=== PATIENT | female | born 1945 | race Two or more races ===

== ENCOUNTER 2020-08-22 09:43 | Outpatient (REF) | payer MEDICARE, MEDICAID, SELFPAY ==
--- NOTE | ~2020-08-22 | XR_ITS ---
EXAMINATION: XR CHEST CLINICAL INFORMATION: Chest pain COMPARISON: None TECHNIQUE: 2 views of the chest were obtained. FINDINGS: The cardiac and mediastinal contours are normal. The lungs are clear. There is no pleural effusion or pneumothorax. There are degenerative changes of the spine and degenerative changes at both shoulder joints. XR/XR chest 2V IMPRESSION: No evidence for acute disease in the chest.
--- NOTE | 2020-08-22 10:28 | ECG_ITS ---
Test Reason : COPD Blood Pressure : / mmHG Vent. Rate : 056 BPM Atrial Rate : 056 BPM P-R Int : 206 ms QRS Dur : 094 ms QT Int : 456 ms P-R-T Axes : 015 -05 079 degrees QTc Int : 440 ms Sinus bradycardia Septal infarct , age undetermined Abnormal ECG No previous ECGs available Referred By: King De Santiago Electronically Signed By:Abdullahi Payan
[2020-08-22 12:25] LABS: MANUAL DIFF FLAG NO
[2020-08-22 12:48] LABS: Glucose Urine UA NEG (NEG); Leukocyte Esterase Urine NEG (NEG); Nitrite Urine NEG (NEG); Specific Gravity - Urine <= 1.005 (1.005-1.025); Urine Blood NEG (NEG); Urine Ketones NEG (NEG); Urine Protein NEG (NEG-TRACE)
[2020-08-22 12:50] LABS: Basophils Percent Auto 0.5 % (0-2); Eosinophils Absolute Auto 0.2 X10*3/uL (0.0-0.4); Eosinophils Percent Auto 2.9 % (0-4); Hematocrit 33.8 % (37-47); Hemoglobin 11.1 g/dl (12.0-16.0); Imm Gran Abs Auto 0.02 X10*3/uL (0.00-0.03); Imm Gran Pct Auto 0.4 % (0.0-0.4); Lymphocytes Absolute Auto 1.6 X10*3/uL (1.2-4.9); Lymphocytes Percent Auto 28.9 % (20-40); Mean Corpuscular HGB Conc 32.8 g/dl (31.0-35.0); Mean Corpuscular Hemoglobin 29.1 pg (27.0-33.0); Mean Corpuscular Volume 88.5 fL (80-98); Mean Platelet Volume 13.2 fL (9.4-12.3); Monocytes Absolute Auto 0.4 X10*3/uL (0.1-1.2); Monocytes Percent Auto 7.7 % (2-11); Neutrophils Absolute Auto 3.3 X10*3/uL (2.0-8.3); Neutrophils Percent Auto 59.6 % (45-73); Platelet Count 189 X10*3/uL (160-400); Red Blood Count 3.82 X10*6/uL (4.20-5.50); Red Cell Distribution Width 15.9 % (11.0-16.0); White Blood Count 5.5 X10*3/uL (4.8-10.8)
[2020-08-22 12:52] LABS: Appearance Urine CLEAR; Color Urine YELLOW
[2020-08-22 13:16] LABS: B Type Natriuretic Peptide 13 pg/mL (<100); Troponin-I High Sensitivity < 3.5 ng/L (<3.5-17.0)
[2020-08-22 13:24] LABS: Alanine Aminotransferase 16 U/L (0-31); Albumin Level 4.2 g/dL (3.5-5.0); Alkaline Phosphatase 93 U/L (39-117); Anion Gap 16 (12-20); Aspartate Amino Transferase 19 U/L (5-31); Bilirubin Direct 0.2 mg/dL (0.0-0.5); Bilirubin Total 0.5 mg/dL (0.0-1.0); Blood Urea Nitrogen 23 mg/dL (9-16); Calcium 9.4 mg/dL (8.4-10.2); Carbon Dioxide 23 mmol/L (22-29); Chloride 106 mmol/L (96-108); Estimated Glomerular Filt Rate > 60; Glucose Random 99 mg/dL (60-115); Potassium 4.4 mmol/L (3.3-5.1); Sodium 141 mmol/L (135-145); Total Protein 7.3 g/dL (6.5-8.0)
[2020-08-22 13:43] LABS: Erythrocyte Sedimentation Rate 34 MM/HR (0-20)
== END 2020-08-22 09:44 | disposition home or self-care (01) ==
LOC: HO.LAB 09:43
PROVIDERS: PCP Internal Medicine; Visit Provider Hospitalist
DX: J45.40 Moderate persistent asthma, uncomplicated (principal); R06.01 Orthopnea; R07.2 Precordial pain; G47.33 Obstructive sleep apnea (adult) (pediatric); F41.9 Anxiety disorder, unspecified; J44.9 Chronic obstructive pulmonary disease, unspecified; Z79.899 Other long term (current) drug therapy
CPT/HCPCS: 36415; 71046; 80048; 80076; 81003; 82785; 83880; 84484; 85025; 85652; 86003; 93005; 99212

== ENCOUNTER → 2020-09-21 10:36 | Outpatient (BNVA) | payer MEDICARE, MEDICAID, SELFPAY | PROVIDERS: PCP Internal Medicine; Referring Provider Internal Medicine; Visit Provider Internal Medicine | DX: R07.2 Precordial pain (principal); E11.8 Type 2 diabetes mellitus with unspecified complications; I10 Essential (primary) hypertension; E78.5 Hyperlipidemia, unspecified; E66.01 Morbid (severe) obesity due to excess calories; G47.33 Obstructive sleep apnea (adult) (pediatric) | CPT/HCPCS: 99202 ==

== ENCOUNTER → 2020-10-05 09:11 | Outpatient (REF) | payer MEDICARE, MEDICAID, SELFPAY ==
--- NOTE | ~2020-10-05 | NM_ITS ---
Myocardial perfusion study Indication: Chest pain to evaluate for myocardial ischemia Technique: The patient was brought in for a Lexiscan perfusion study on 10/05/2020. Patient performed low-level exercise and was injected 0.4 mg of Lexiscan intravenously. Within a minute of injection, 45 mCi of sestamibi was given intravenously. Images were obtained using the SPECT gamma camera interlaced with the gating device. Images were obtained in supine position. Resting perfusion study was performed on 10/09/2020. Patient was administered 45 mCi of sestamibi intravenously at rest. Images were then obtained in supine position. Images obtained with and without CT attenuation. Total DLP 145 mGy-cm. Images were processed with the software and compared side to side in short axis, horizontal long axis and vertical long axis views. Findings: The stress perfusion study showed nonattenuated images show minimal thinning of the distal lateral wall of the LV myocardium. Attenuation corrected images show mildly reduced uptake in the distal septum and apex of the LV myocardium.. The gated study shows normal LV systolic function with calculated LVEF of 60%. LV cavity is normal in size. The gated study shows normal systolic wall thickening and contraction of segments. Resting study shows nonattenuated images show moderately reduced uptake in the distal lateral wall of the LV myocardium and apex of the LV myocardium. Attenuation corrected images show mildly reduced uptake in septum and moderately reduced uptake in the distal septum of the LV myocardium.. Gating at rest reveals normal systolic wall motion with ejection fraction at 58%. The findings are consistent with no clear reversible defect suggestive of ischemia. NM/NM ratna perf SPECT rest & str Impression: 1. Myocardial perfusion imaging study shows likely normal myocardial perfusion 2. Gated LVEF is 60% 3. Transient ischemic dilatation not present EKG is nondiagnostic for ischemia
--- NOTE | 2020-10-05 09:15 | CA_ITS ---
Acquisition Time: 2020-10-05 09:46:40 Total Exercise Time: 00:02:00 Test Indications: CP, SOB Medications: SEE CHART Protocol: LEXISCAN Max HR: 091 BPM 62% of Pred: 146 BPM Max BP: 130/078 mmHG Max Work Load: 1.0 METS Pharmacological stress test using Lexiscan while sitting. Pt tolerated well , denies any anginal sx. EKG without any arrhythmias, non-diagnostic for ischemia. Nuclear images to follow. Normotensive response to test. Test reviewed with Dr. Carnes. Referred By: Brijesh Arshad Overread By: Simi Coyne NP
== END ==
LOC: HO.CARD 09:11
PROVIDERS: Visit Provider Internal Medicine
DX: R07.2 Precordial pain (principal)
CPT/HCPCS: 78452; 93017; A9500; J0280; J2785

== ENCOUNTER → 2020-11-01 08:24 | Outpatient (REF) | payer MEDICARE, MEDICAID, SELFPAY ==
--- NOTE | 2020-11-01 08:28 | CA_ITS ---
Transthoracic Echocardiogram Patient (Last, First, Middle): Viviana Menjivar, Gender: Female Date of : 1945 Age: 74 Procedure Date: 11/01/2020 Procedure Type: Transthoracic Echocardiogram Location: OP Height: 157.48 cm Weight: 110.68 kg BSA: 2.08 m2 Heart Rate: bpm BP: 130 / 56 mmHg General Sales Manager: [facility] MD: Brijesh Arshad MD Floor Supervisor: Nate Carnes MD Symptoms: R07.2 - Precordial pain Study Quality: Good ECG Rhythm: Sinus Conclusions: - 1. Normal LV systolic function with grade 1 diastolic dysfunction 2. Normal cardiac valvular Doppler 3. Normal RV systolic pressure 4. No pericardial effusion Findings Left Ventricle Normal left ventricular size, thickness, and systolic function. The visually estimated ejection fraction is between 65-70%. Spectral Doppler is indicative of an impaired relaxation filling pattern. E/E prime ratio is <8, consistent with normal filling pressures. Evidence suggests grade I (mild) diastolic dysfunction. Right Ventricle Normal right ventricular cavity size and systolic function. Atria The left atrium is normal in size. Interatrial shunt cannot be excluded. The right atrium is normal in size. Aortic Valve The aortic valve structure and function is likely normal. There is no aortic valve stenosis. There is no aortic valve regurgitation. Mitral Valve Normal mitral valve structure and function. There is trace mitral valve regurgitation. There is no mitral valve stenosis. Pulmonic Valve The pulmonic valve was not well visualized. Tricuspid Valve Likely normal tricuspid valve structure and function. There is trace tricuspid valve regurgitation. The right ventricular systolic pressure is normal. The right ventricular systolic pressure is 32 mmHg. Normal right atrial pressure. There is no evidence of pulmonary hypertension. Great Vessels All visible segments of the aorta are normal in size. The pulmonary artery was not well visualized. Venous The inferior vena cava is normal in size and collapses greater than 50% with inspiration. Pericardium/Pleural There is no evidence of pericardial effusion. Prior Study Comparison No prior study available for comparison. Measurements 2D Linear Measurements RVIDd: 2.60 RVIDd Index: 1.25 IVSd: 0.95 0.6-0.9/0.6-1.0 cm LVIDd: 5.00 3.9-5.3/4.2-5.9 cm LVIDd Index: 2.40 2.4-3.2/2.2-3.1 cm/m2 LVIDs: 3.24 2.0-3.6 cm LVPWd: 1.18 0.7-1.1 cm Ao Root: 3.00 2.1-3.5 cm LA Diam: 3.70 2.7-3.8/3.0-4.0 cm LAIDs Index: 1.78 1.5-2.3 cm/m2 LV Mass: 246.81 67-162/88-224 g LV Mass Index: 118.66 43-95/49-115 g/m2 LVOT Diam: 2.20 3.0+(-)1.3 cm 2D Systolic Function EF 4C: 70.00 >55% EF 2C: 66.20 >55% EF BiP: 68.00 >55% Mitral Valve MV Pk E: 0.94 MV PK A: 1.08 MV Decel Time: 257.00 E/A: 0.90 E'Lateral: 5.77 E'Medial: 4.90 E/E' Med: 19.20 E/E' Lat: 16.30 Aortic Valve AoV Pk Donald: 1.49 AoV Mn Donald: 1.18 AoV VTI: 0.43 AoV Pk Grad: 9.00 Aov Mn Grad: 6.00 JOSIE Cont.VTI: 2.44 LVOT LVOT Pk Donald: 0.96 LVOT Mn Donald: 0.73 LVOT VTI: 0.27 LVOT Pk Grad: 4.00 LVOT Mn Grad: 2.00 LVOT Diam: 2.20 LVOT Area: 3.80 Diastolic Function MV Pk E: 0.94 MV Pk A: 1.08 E/A: 0.90 E'Medial: 4.90 E/E' Med: 19.20 E' Laterial: 5.77 E/E' Lat: 16.30 Right Ventricle TAPSE (mm): 26.00 TVS' Donald: 12.00 Tricuspid Valve TR Pk Donald: 2.70 TR Pk Grad: 29.00 RA Press: 3.00 RVSP: 32.00 Great Vessels Aorta Ao Root-2D: 3.00 2.0-3.7 cm Ao Asc: 2.80 2.1-3.4 cm Ao Arch: 2.70 Updated in Other Vendor System with Status of Final Nate Carnes MD electronically signed on 11/01/2020 5:03:28 PM with status of Final
== END ==
LOC: HO.CARD 08:24
PROVIDERS: Visit Provider Internal Medicine
DX: R07.2 Precordial pain (principal)
CPT/HCPCS: 93306

== ENCOUNTER → 2020-11-15 09:46 | Outpatient (BNVA) | payer MEDICARE, MEDICAID, SELFPAY | PROVIDERS: PCP Internal Medicine; Visit Provider Internal Medicine | DX: R07.2 Precordial pain (principal); I10 Essential (primary) hypertension; E78.5 Hyperlipidemia, unspecified; E11.8 Type 2 diabetes mellitus with unspecified complications; E66.01 Morbid (severe) obesity due to excess calories; G47.33 Obstructive sleep apnea (adult) (pediatric) | CPT/HCPCS: 99212 ==

== ENCOUNTER → 2021-08-06 14:41 | Outpatient (BNVA) | payer OTHER, SELFPAY | PROVIDERS: PCP Internal Medicine; Visit Provider Hospitalist | DX: J45.41 Moderate persistent asthma with (acute) exacerbation (principal); G47.33 Obstructive sleep apnea (adult) (pediatric); R06.01 Orthopnea | CPT/HCPCS: 99212 ==

== ENCOUNTER → 2022-02-07 11:07 | Outpatient (BNVA) | payer OTHER, SELFPAY | PROVIDERS: PCP Internal Medicine; Visit Provider Hospitalist | DX: Z23 Encounter for immunization (principal); J45.40 Moderate persistent asthma, uncomplicated; R06.01 Orthopnea; G47.33 Obstructive sleep apnea (adult) (pediatric) | CPT/HCPCS: 90471; 90686; 99212 ==

== ENCOUNTER → 2022-08-05 09:56 | Outpatient (BNVA) | payer OTHER, SELFPAY | PROVIDERS: PCP Internal Medicine; Visit Provider Hospitalist | DX: J45.40 Moderate persistent asthma, uncomplicated (principal); R06.01 Orthopnea; G47.33 Obstructive sleep apnea (adult) (pediatric); Z22.7 Latent tuberculosis | CPT/HCPCS: 99212 ==

== ENCOUNTER 2023-03-03 14:33 | Outpatient (AMB) | payer OTHER, SELFPAY ==
[2023-03-03 14:38] VITALS: PULSE 81; O2SAT 97; BMI 45.0
--- NOTE | 2023-03-03 14:38 | A.OFFVIS_ITS ---
Intake Vital Signs 03/03/23 14:38 Height 5 ft 3 in Weight 254 lb BMI 45.0 Pulse 81 Pulse Source Pulse Oximeter Pulse Oximetry (%) 97 Oxygen Delivery Method Room Air Intake Visit Reasons: Cough Compliance Examiner Required: No Allergies Opiates Allergy (Severe, Uncoded 03/03/23 14:39) Rash/Hives HPI HPI Comments History of Present Illness Details The patient is a 77-year-old woman with known asthma in addition to obstructive sleep apnea. Her asthma has actually been very stable. She has continued to use her inhalers but has not really had to use her rescue inhaler. She continues to use her allergy medicine. In regards to her VANESSA, she does use her BiPAP every night. The BiPAP therapy has been affecting beneficial. She does use a BiPAP for more than 4 hours. At this point the patient does have a comfortable mask which is a fullface mask and she gets supplies from her [employer] company, [email or web address]. Overall she has not had any problems. She did recently start Medicare so therefore a new prescription needs to be sent and I'll make sure they do get that. The plan is for her to continue the BiPAP at this time. We did download her PAP. Her pressures are 14/11. She averages 9 hours a night. Her AHI is normal at 2.1 for the last 30 days. No changes are required at this time. 08/05/2022 the patient is here for a pulm onary follow-up visit. The patient is doing well from a BiPAP standpoint. Her BiPAP therapy has been affecting beneficial. She does use it for more than 4 hours a night. She is tolerating her mask well. Her AHI is down to 1.5. Her asthma seems to be little bit more active now. She has been using the Symbicort and also the Combivent. Typically the allergy season so usually around this time makes it hard for her to breathe. She tries to stay indoors to minimize the exposure. But, at this point she is doing well on the current therapy in does not need any additional therapies. In addition to this she was referred to a day program for the elderly. As far that program she did undergo a tuberculosis screening test. Indeed that was posi tive. She does state that she does have a history of exposure to tuberculosis and she has always tested positive when she is tested with PPD. She has never been diagnosed with active tuberculosis. Explained to her that she has latent tuberculosis. There is a 5-10% chance of reactivation through her on her life. The patient was referred to the TB Clinic to start prophylactic therapy. She is concerned. I did reassure her. At this point the patient follow-up in the fall if any issues arise she is to call the office earlier assessment. 03/03/2023 the patient is here for a pul monary follow-up visit. The patient is doing very well. She continues use the BiPAP every night. The BiPAP therapy has been affecting beneficial. Will go ahead and request additional supplies for her. She does use it for more than 4 hours a night. In addition to that her respiratory status is been well controlled on the current regimen. She continues use inhalers as prescribed. She also has been on her tuberculosis prophylactic treatment for total of 4 months. She has already completed 3 and she is tolerating it well. The patient also has been working on weight loss. Overall she is reassured. She is having an easier time with ambulation. [facility] Medical History (Updated 08/05/22 @ 22:43 by King De Santiago MD) Latent tuberculosis Limb swelling Abnormal EKG VANESSA treated with BiPAP Asthma Dyspnea Chest pain Surgical History History of lumbar surgery History of uterine cancer Family History Father No problems noted. Mother No problems noted. Social History Patient Tobacco Use Status: Never used Tobacco Review of Systems Const Denies fever(s), Denies night sweats and Reports weight loss Eyes Denies change in vision ENT Reports change in voice, Denies hoarseness and Denies sore throat Card Denies chest pain Resp Denies chest congestion, Reports cough, Denies hemoptysis and Denies wheezing GI Reports no additional complaints Musc Reports abnormal gait, Reports back pain, Reports myalgias and Reports limited range of motion Skin/Breast Denies rash Neuro Reports abnormal gait Endo Reports no additional complaints Jimi/Lymph Denies easy bleeding and Denies easy bruising Aller/Immun Denies wheezing Physical Exam Vital Signs: Last Vital Signs Pulse 81 03/03/23 14:38 Pulse Ox 97 03/03/23 14:38 Oxygen Delivery Method Room Air 03/03/23 14:38 BMI result Body Mass Index 45.0 Const General: alert Neck Neck: Yes normal visual inspection, Yes full ROM and Yes no lymphadenopathy Chest Chest palpation & inspection: normal inspection of the chest Resp Effort & Inspection: normal respiratory effort Auscultation: no rhonchi, no wheezes and diminished lung sounds Cardio Rate: regular rate Rhythm: regular rhythm Heart sounds: S1 normal heart sound present and S2 normal heart sound present GI Palpation (GI): Soft to palpation and nontender Auscultation: normal bowel sounds Skin General skin exam: rashes and/or lesions noted Extrem General: Yes edema Assessment & Plan Assessment & Plan (1) Asthma: Code(s): J45.909 - Unspecified asthma, uncomplicated Qualifiers: Asthma complication type: uncomplicated Asthma persistence: persistent Asthma severity: moderate Qualified Code(s): J45.40 - Moderate persistent asthma, uncomplicated (2) Dyspnea: Code(s): R06.00 - Dyspnea, unspecified Qualifiers: Dyspnea type: orthopnea Qualified Code(s): R06.01 - Orthopnea (3) VANESSA treated with BiPAP: Code(s): G47.33 - Obstructive sleep apnea (adult) (pediatric) (4) Latent tuberculosis: Code(s): Z22.7 - Latent tuberculosis Plan continue BIPAP 07/03 Continue combivent continue Symbicort 2puff BID Continue Singulair continue Claritin continue Fluticasone TB clinic and prophylactic TB therapy x 4 months F/U 6 months Coding Level of Care Code Est Pt Level 4 (43720) Diagnoses Moderate persistent asthma without complication J45.40 Asthma complication type: uncomplicated Asthma persistence: persistent Asthma severity: moderate Orthopnea R06.01 Dyspnea type: orthopnea VANESSA treated with BiPAP G47.33 Latent tuberculosis Z22.7 Time Spent (min) 17
== END 2023-03-03 14:56 | disposition home or self-care (01) ==
PROVIDERS: PCP Internal Medicine; Visit Provider Hospitalist
DX: J45.40 Moderate persistent asthma, uncomplicated (principal); R06.01 Orthopnea; G47.33 Obstructive sleep apnea (adult) (pediatric); Z22.7 Latent tuberculosis
CPT/HCPCS: 99214

== ENCOUNTER → 2023-03-03 14:33 | Outpatient (BNVA) | payer OTHER, SELFPAY | PROVIDERS: PCP Internal Medicine; Visit Provider Hospitalist | DX: J45.40 Moderate persistent asthma, uncomplicated (principal); G47.33 Obstructive sleep apnea (adult) (pediatric); R06.01 Orthopnea; Z22.7 Latent tuberculosis | CPT/HCPCS: 99212 ==

== ENCOUNTER 2023-07-15 09:53 | Outpatient (AMB) | payer OTHER, SELFPAY ==
[2023-07-15 09:59] VITALS: PULSE 67; O2SAT 97; BMI 46.5
--- NOTE | 2023-07-15 09:59 | A.OFFVIS_ITS ---
Vital Signs 07/15/23 09:59 Height 5 ft 2 in Weight 254 lb BMI 46.5 Pulse 67 Pulse Source Pulse Oximeter Pulse Oximetry (%) 97 Oxygen Delivery Method Room Air Intake Visit Reasons: cough Teacher Adventure Education Required: No Allergies Opiates Allergy (Severe, Uncoded 07/15/23 10:00) Rash/Hives HPI Comments Details: The patient is a 77-year-old woman with known asthma in addition to obstructive sleep apnea. Her asthma has actually been very stable. She has continued to use her inhalers but has not really had to use her rescue inhaler. She continues to use her allergy medicine. In regards to her VANESSA, she does use her BiPAP every night. The BiPAP therapy has been affecting beneficial. She does use a BiPAP for more than 4 hours. At this point the patient does have a comfortable mask which is a fullface mask and she gets supplies from her [employer] company, [employer]. Overall she has not had any problems. She did recently start Medicare so therefore a new prescription needs to be sent and I'll make sure they do get that. The plan is for her to continue the BiPAP at this time. We did download her PAP. Her pressures are 14/11. She averages 9 hours a night. Her AHI is normal at 2.1 for the last 30 days. No changes are required at this time. 08/05/2022 the patient is here for a pulmonary follow-up visit. The patient is doing well from a BiPAP standpoint. Her BiPAP therapy has been affecting beneficial. She does use it for more than 4 hours a night. She is tolerating her mask well. Her AHI is down to 1.5. Her asthma seems to be little bit more active now. She has been using the Symbicort and also the Combivent. Typically the allergy season so usually around this time makes it hard for her to breathe. She tries to stay indoors to minimize the exposure. But, at this point she is doing well on the current therapy in does not need any additional therapies. In addition to this she was referred to a day program for the elderly. As far that program she did undergo a tuberculosis screening test. Indeed that was positive. She does state that she does have a history of exposure to tuberculosis and she has always tested positive when she is tested with PPD. She has never been diagnosed with active tuberculosis. Explained to her that she has latent tuberculosis. There is a 5-10% chance of reactivation through her on her life. The patient was referred to the TB Clinic to start prophylactic therapy. She is concerned. I did reassure her. At this point the patient follow-up in the fall if any issues arise she is to call the office earlier assessment. 03/03/2023 the patient is here for a pulmonary follow-up visit. The patient is doing very well. She continues use the BiPAP every night. The BiPAP therapy has been affecting beneficial. Will go ahead and request additional supplies for her. She does use it for more than 4 hours a night. In addition to that her respiratory status is been well controlled on the current regimen. She continues use inhalers as prescribed. She also has been on her tuberculosis prophylactic treatment for total of 4 months. She has already completed 3 and she is tolerating it well. The patient also has been working on weight loss. Overall she is reassured. She is having an easier time with ambulation. 07/15/2023 the patient is here for pulmonary follow-up visit. Overall she is doing well. The BiPAP therapy has been affecting beneficial. She has missing a piece from the machine will try to help her with it. The patient does use the machine every night for more than 4 hours. Her adherence is 100%. Her AHI is down to 1. She does get with her mask. No significant leakage. She is complaining of worsening cough. She goes to coughing burst. She does use the rescue inhaler with good improvement of the cough. She does use Symbicort in the morning and also in the evening. Will go ahead and add Spiriva to her regimen. Also some cough drops such as benzonates is will be helpful as well. We did look at her last chest x-ray was from [facility] back in August 2022 demonstrating no acute disease. She was treated prophylactically for latent tuberculosis. She already completed the treatment. She tolerated it fairly well. The patient will try the Spiriva and also the benzo needs. If her symptoms are not better she will call the office. Otherwise will follow-up in 6 months. [facility] Medical History (Updated 08/05/22 @ 22:43 by King De Santiago MD) Latent tuberculosis Limb swelling Abnormal EKG VANESSA treated with BiPAP Asthma Dyspnea Chest pain Surgical History History of lumbar surgery History of uterine cancer Family History Father No problems noted. Mother No problems noted. Social History Patient Tobacco Use Status: Never used Tobacco Review of Systems Const Denies fever(s), Denies night sweats and Reports weight loss Eyes Denies change in vision ENT Reports change in voice, Denies hoarseness and Denies sore throat Card Denies chest pain Resp Denies chest congestion, Reports cough, Denies hemoptysis and Denies wheezing GI Reports no additional complaints Musc Reports abnormal gait, Reports back pain, Reports myalgias and Reports limited range of motion Skin/Breast Denies rash Neuro Reports abnormal gait Endo Reports no additional complaints Jimi/Lymph Denies easy bleeding and Denies easy bruising Aller/Immun Denies wheezing Physical Exam Vital Signs: Last Vital Signs Pulse 67 07/15/23 09:59 Pulse Ox 97 07/15/23 09:59 Oxygen Delivery Method Room Air 07/15/23 09:59 BMI result Body Mass Index 46.5 Const General: alert Neck Neck: Yes normal visual inspection, Yes full ROM and Yes no lymphadenopathy Chest Chest palpation & inspection: normal inspection of the chest Resp Effort & Inspection: normal respiratory effort and prolonged expiratory phase Auscultation: no rhonchi, no wheezes and diminished lung sounds Cardio Rate: regular rate Rhythm: regular rhythm Heart sounds: S1 normal heart sound present and S2 normal heart sound present GI Palpation (GI): Soft to palpation and nontender Auscultation: normal bowel sounds Skin General skin exam: rashes and/or lesions noted Extrem General: Yes edema Assessment & Plan Assessment & Plan (1) Asthma: Code(s): J45.909 - Unspecified asthma, uncomplicated Category: Medical Qualifiers: Asthma complication type: uncomplicated Asthma persistence: persistent Asthma severity: moderate Qualified Code(s): J45.40 - Moderate persistent asthma, uncomplicated (2) Dyspnea: Code(s): R06.00 - Dyspnea, unspecified Category: Medical Qualifiers: Dyspnea type: orthopnea Qualified Code(s): R06.01 - Orthopnea (3) VANESSA treated with BiPAP: Code(s): G47.33 - Obstructive sleep apnea (adult) (pediatric) Category: Medical Plan continue BIPAP 15/12 start Spiriva respimet daily start benzonates as needed for cough continue Symbicort 2puff BID Continue Singulair continue Claritin continue Fluticasone F/U 6 months Medications: New tiotropium bromide 2.5 mcg/actuation (Spiriva Respimat) 2 puffs inhalation DAILY 1 ea 11RF 30 days benzonatate 200 mg PO BID PRN 60 caps 0RF cough 30 days Coding Level of Care Code Est Pt Level 4 (36921) Diagnoses Moderate persistent asthma without complication J45.40 Asthma complication type: uncomplicated Asthma persistence: persistent Asthma severity: moderate Orthopnea R06.01 Dyspnea type: orthopnea VANESSA treated with BiPAP G47.33 Time Spent (min) 16
== END 2023-07-15 10:20 | disposition home or self-care (01) ==
PROVIDERS: PCP Internal Medicine; Visit Provider Hospitalist
DX: J45.40 Moderate persistent asthma, uncomplicated (principal); R06.01 Orthopnea; G47.33 Obstructive sleep apnea (adult) (pediatric)
CPT/HCPCS: 99214

== ENCOUNTER → 2023-07-15 09:53 | Outpatient (BNVA) | payer OTHER, SELFPAY | PROVIDERS: PCP Internal Medicine; Visit Provider Hospitalist | DX: J45.40 Moderate persistent asthma, uncomplicated (principal); R06.01 Orthopnea; G47.33 Obstructive sleep apnea (adult) (pediatric); Z99.89 Dependence on other enabling machines and devices | CPT/HCPCS: 99212 ==

== ENCOUNTER 2024-04-13 10:14 | Outpatient (AMB) | payer OTHER, SELFPAY ==
[2024-04-13 10:24] VITALS: BP 130/78; PULSE 66; O2SAT 100; BMI 46.0
--- NOTE | 2024-04-13 10:24 | A.OFFVIS_ITS ---
Vital Signs 04/13/24 10:24 Height 5 ft 2 in Weight 251 lb 5.231 oz BMI 46.0 BP 130/78 Blood Pressure Location Rt brachial Position Sitting Pulse 66 Pulse Source Pulse Oximeter Pulse Oximetry (%) 100 Oxygen Delivery Method Room Air Intake Visit Reasons: cough Allergies Opiates Allergy (Severe, Uncoded 04/13/24 10:29) Rash/Hives HPI Comments Details: The patient is a 78-year-old woman with known asthma in addition to obstructive sleep apnea. Her asthma has actually been very stable. She has continued to use her inhalers but has not really had to use her rescue inhaler. She continues to use her allergy medicine. In regards to her VANESSA, she does use her BiPAP every night. The BiPAP therapy has been affecting beneficial. She does use a BiPAP for more than 4 hours. At this point the patient does have a comfortable mask which is a fullface mask and she gets supplies from her [employer] company, [employer]. Overall she has not had any problems. She did recently start Medicare so therefore a new prescription needs to be sent and I'll make sure they do get that. The plan is for her to continue the BiPAP at this time. We did download her PAP. Her pressures are 14/11. She averages 9 hours a night. Her AHI is normal at 2.1 for the last 30 days. No changes are required at this time. 08/05/2022 the patient is here for a pulmonary follow-up visit. The patient is doing well from a BiPAP standpoint. Her BiPAP therapy has been affecting beneficial. She does use it for more than 4 hours a night. She is tolerating her mask well. Her AHI is down to 1.5. Her asthma seems to be little bit more active now. She has been using the Symbicort and also the Combivent. Typically the allergy season so usually around this time makes it hard for her to breathe. She tries to stay indoors to minimize the exposure. But, at this point she is doing well on the current therapy in does not need any additional therapies. In addition to this she was referred to a day program for the elderly. As far that program she did undergo a tuberculosis screening test. Indeed that was positive. She does state that she does have a history of exposure to tuberculosis and she has always tested positive when she is tested with PPD. She has never been diagnosed with active tuberculosis. Explained to her that she has latent tuberculosis. There is a 5-10% chance of reactivation through her on her life. The patient was referred to the [facility] to start prophylactic therapy. She is concerned. I did reassure her. At this point the patient follow-up in the fall if any issues arise she is to call the office earlier assessment. 03/03/2023 the patient is here for a pulmonary follow-up visit. The patient is doing very well. She continues use the BiPAP every night. The BiPAP therapy has been affecting beneficial. Will go ahead and request additional supplies for her. She does use it for more than 4 hours a night. In addition to that her respiratory status is been well controlled on the current regimen. She continues use inhalers as prescribed. She also has been on her tuberculosis prophylactic treatment for total of 4 months. She has already completed 3 and she is tolerating it well. The patient also has been working on weight loss. Overall she is reassured. She is having an easier time with ambulation. 07/15/2023 the patient is here for pulmonary follow-up visit. Overall she is doing well. The BiPAP therapy has been affecting beneficial. She has missing a piece from the machine will try to help her with it. The patient does use the machine every night for more than 4 hours. Her adherence is 100%. Her AHI is down to 1. She does get with her mask. No significant leakage. She is complaining of worsening cough. She goes to coughing burst. She does use the rescue inhaler with good improvement of the cough. She does use Symbicort in the morning and also in the evening. Will go ahead and add Spiriva to her regimen. Also some cough drops such as benzonates is will be helpful as well. We did look at her last chest x-ray was from [facility] back in August 2022 demonstrating no acute disease. She was treated prophylactically for latent tuberculosis. She already completed the treatment. She tolerated it fairly well. The patient will try the Spiriva and also the benzo needs. If her symptoms are not better she will call the office. Otherwise will follow-up in 6 months. 04/13/2024 the patient is here for pulmonary follow-up visit. Overall she is doing well from a respiratory status. Asthma seems to be in good control. She recently moved to a different location seems to be a little healthier for her. She is also using her BiPAP at nighttime BiPAP has been affecting beneficial. Sometimes she leaks out he does have a mask fitting. She does use a fullface mask. I did provide her a trial of a F 40 medium mask that seemed to fit well. Hopefully with this mask she can put a little tighter without irritating her nasal bridge. She can try and see which 1 works best for her. Will keep the BiPAP with the current settings / since her AHI still 1.8 even with the mask leakage. Most likely when she gets a better fitting mask the AHI while improves further. No changes right now with respiratory medications. Will follow-up in 6 months. If she has any issues prior to that she will call for an earlier assessment. [facility] Medical History (Updated 08/05/22 @ 22:43 by King De Santiago MD) Latent tuberculosis Limb swelling Abnormal EKG VANESSA treated with BiPAP Asthma Dyspnea Chest pain Surgical History History of lumbar surgery History of uterine cancer Family History Father No problems noted. Mother No problems noted. Social History Patient Tobacco Use Status: Never used Tobacco Review of Systems Const Denies fever(s), Denies night sweats and Reports weight loss Eyes Denies change in vision ENT Reports change in voice, Denies hoarseness and Denies sore throat Card Denies chest pain Resp Denies chest congestion, Reports cough, Denies hemoptysis and Denies wheezing GI Reports no additional complaints Musc Reports abnormal gait, Reports back pain, Reports myalgias and Reports limited range of motion Skin/Breast Denies rash Neuro Reports abnormal gait Endo Reports no additional complaints Jimi/Lymph Denies easy bleeding and Denies easy bruising Aller/Immun Denies wheezing Physical Exam Vital Signs: Last Vital Signs Pulse 66 04/13/24 10:24 BP 130/78 04/13/24 10:24 Pulse Ox 100 04/13/24 10:24 Oxygen Delivery Method Room Air 04/13/24 10:24 BMI result Body Mass Index 46.0 Const General: alert Neck Neck: Yes normal visual inspection, Yes full ROM and Yes no lymphadenopathy Chest Chest palpation & inspection: normal inspection of the chest Resp Effort & Inspection: normal respiratory effort Auscultation: no rhonchi, no wheezes and diminished lung sounds Cardio Rate: regular rate Rhythm: regular rhythm Heart sounds: S1 normal heart sound present and S2 normal heart sound present GI Palpation (GI): Soft to palpation and nontender Auscultation: normal bowel sounds Skin General skin exam: rashes and/or lesions noted Extrem General: Yes edema Assessment & Plan Assessment & Plan (1) Asthma: Code(s): J45.909 - Unspecified asthma, uncomplicated Category: Medical Qualifiers: Asthma complication type: uncomplicated Asthma persistence: persistent Asthma severity: moderate Qualified Code(s): J45.40 - Moderate persistent asthma, uncomplicated (2) Dyspnea: Code(s): R06.00 - Dyspnea, unspecified Category: Medical Qualifiers: Dyspnea type: orthopnea Qualified Code(s): R06.01 - Orthopnea (3) VANESSA treated with BiPAP: Code(s): G47.33 - Obstructive sleep apnea (adult) (pediatric) Category: Medical Plan continue BIPAP 15, trial F40 mask Spiriva respimet daily benzonates as needed for cough continue Symbicort 2puff BID Continue Singulair continue Claritin continue Fluticasone F/U 6 months Coding Level of Care Code Est Pt Level 4 (44001) Diagnoses Moderate persistent asthma without complication J45.40 Asthma complication type: uncomplicated Asthma persistence: persistent Asthma severity: moderate Orthopnea R06.01 Dyspnea type: orthopnea VANESSA treated with BiPAP G47.33 Time Spent (min) 17
--- OUTSIDE RECORDS SUMMARY | 2024-04-13 11:28 | XMS_ITS | Encounter Summary ---
Author Organization [email or web address] Address [address] [place] [address] Care Team Providers Care Search Engine Marketing Manager Name Role Phone Luis F Rodriguez MD Primary Care Provider [phone] Encounter Details Date Type Department Care Team (Late st Contact Info) Description 04/06/2024 9:48 AM EST Anesthesia Event [facility] Endoscopy [address] [place] [id number] Felipe Portillo MD [address] [place] [address] [address] [place] [address] Anesthesia Record Procedure Summary Procedure Name Responsible Anesthesiologist Anesthesia Start Time Anesthesia Stop Time COLONOSCOPY Felipe Portillo MD 04/06/24 0948 5 1043 Events Date Time Event Comment 04/06/2024 0940 0948 An Start 1005 An Start Data The patient wa s reevaluated immediately before moderate or deep sedation use and before anesthesia induction. 1007 In Room 1007 Anesthesia Ready 1040 an stop data 1040 Out of Room 1043 Handoff to RN I completed my handoff to the receiving nurse during which we: 1. Identified the patient 2. Identified the responsible provider 3. Reviewed the pertinent medical history 4. Discussed the surgical course 5. Reviewed intra-op anesthesia management and issues during anesthesia 6. Set expectations for post-procedure period 7. Allowed opportunity for questions and acknowledgement of understanding. 1043 An Stop Meds Name Total propofol (DIPRIVAN) injection 10 mg/mL 2 50 mg lidocaine PF (XYLOCAINE-MPF) local injec tion 2% 100 mg benzocaine (HURRICAINE) mucosal spray 20 % (unit dose) 1 spray lactated Ringer's infusion 250 mL * Agents No agents on file. * Blood No blood administrations on file. Lines, Drains, and Airways No LDAs on file. documented in this encounter Social History Tobacco Use Types Packs/Day Years Used Date Smoking Tobacco: Never Smokeless Tobacco: Never Alcohol Use Standard Drinks/Week Comments No 0 (1 standard drink = 0.6 oz pur e alcohol) Sex and Gender Information Value Date Recorded Sex Assigned at Female 04/05/2024 12:31 PM EST Gender Identity Female 04/05/2024 12:31 PM EST Sexual Orientation Straight 04/05/2024 12 :33 PM EST Job Start Date Occupation Industry Not on file Not on file Not on file documented as of this encounter Progress Notes * Ilana Nina CRNA - 04/06/2024 10:43 AM EST Patient: Viviana Menjivar Procedure Summary Date: 04/06/24 Room / Location: [facility] Endoscopy Anesthesia Start: 947 Anesthesia Stop: 1042 Procedures: COLONOSCOPY EGD Diagnosis: Hx of colonic polyps Gastroesophageal reflux disease without esophagitis (Heartburn) Scheduled Providers: Ward Travis DO; Ilana Nina CRNA; Felipe Portillo MD Responsible Provider: Felipe Portillo MD Anesthesia Type: MAC ASA Status: 3 Anesthesia Plan: MAC Last Vitals: Visit Vitals BP (!) 181/74 Pulse 77 Temp 36.1 ??C (96.9 ??F) (Temporal) Resp 16 Ht 1.575 m (62 ) Wt 109 kg (240 lb) SpO2 100% BMI 43.90 kg/m?? OB Status Postmenopausal Smoking Status Never BSA 2.07 m?? No data recorded Anesthesia Post Evaluation Patient location during evaluation: PACU Patient participation: complete - patient participated Level of consciousness: awake and alert Pain score: 0 Pain management: adequate Airway patency: patent Anesthetic complications: no Cardiovascular status: acceptable and stable Respiratory status: acceptable Hydration status: acceptable Nausea: No Vomiting: No There were no known notable events for this encounter. * Felipe Portillo MD - 04/06/2024 9:20 AM EST 78 y.o. female scheduled for Hx of colonic polyps [COLONOSCOPY] Ht Readings from Last 1 Encounters: 03/12/24 1.575 m (62 ) Wt Readings from Last 1 Encounters: 03/12/24 112 kg (247 lb 1.6 oz) There is no height or weight on file to calculate BMI. Past Medical History: Diagnosis Date Asthma 10/22/2016 DX:Asthma Bilateral carotid artery stenosis 11/13/2020 DX:Bilateral carotid artery stenosis Cataract 01/10/2017 DX:Cataract; COMMENT: Surgery 05/17/14 Conjunctival chalasis, bilateral 01/10/2017 DX:Conjunctival chalasis, bilateral GERD (gastroesophageal reflux disease) 10/22/2016 DX:GERD (gastroesophageal reflux disease) Glenohumeral arthritis 07/04/2017 DX:Glenohumeral arthritis; COMMENT: Shoulders bilat. Cortisone injections [facility] History of endometrial cancer 08/16/2010 DX:History of endometrial cancer; COMMENT: Subtotal johanne bso 2000 high grade endometrial ca + margins but neg biopsy by Dr Stock 2002 and neg paps after HLD (hyperlipidemia) 10/22/2016 DX:HLD (hyperlipidemia) HTN (hypertension) 10/22/2016 DX:HTN (hypertension) Hypothyroidism 10/22/2016 DX:Hypothyroidism Morbid obesity with BMI of 40.0-44.9, adult ([facility]) 12/31/2016 DX:Morbid obesity with BMI of 40.0-44.9, adult ([facility]) Neuropathy of both feet 06/24/2017 DX:Neuropathy of both feet Osteoarthritis of knees, bilateral 06/17/2017 DX:Osteoarthritis of knees, bilateral; COMMENT: chronic knee pain, followed at [facility]. 05/2016 x ray: endstage arthritic changes w/ noted osteophyte formation. (Not a candidate for TKR until wt down to 215 and DM under control w/ H A1C < 8.) s/p Lynn One injection bilat 06/28/2016. Positive QuantiFERON-TB Gold test 03/13/2022 DX:Positive QuantiFERON-TB Gold test Type 2 diabetes mellitus with diabetic neuropathy, unspecified ([facility]) 10/22/2016 DX:Type 2 diabetes mellitus with diabetic neuropathy, unspecified ([facility]) Type 2 diabetes mellitus with eye manifestations ([facility]) 10/22/2016 DX:Type 2 diabetes mellitus with eye manifestations ([facility]) Past Surgical History: Procedure Laterality Date BACK SURGERY 06/2012 PROCEDURE: HISTORICAL BACK SURGERY; COMMENT: Posterior decompression and fusion L4-L5 w/ pedicle screw and posterolateral grafting. CATARACT EXTRACTION Left 05/17/2014 PROCEDURE: HISTORICAL CATARACT REMOVAL; COMMENT: Dr Blake Hahn CATARACT EXTRACTION Right 05/05/2014 PROCEDURE: HISTORICAL CATARACT REMOVAL SECTION PROCEDURE: MA DELIVERY ONLY; COMMENT: x 1 CHOLECYSTECTOMY PROCEDURE: MA LAPAROSCOPY SURG CHOLECYSTECTOMY COLONOSCOPY 08/14/2018 PROCEDURE: HISTORICAL COLONOSCOPY; COMMENT: 8 mm polyp in ascending colon (sessile), internal hemorrhoids HYSTERECTOMY PROCEDURE: MA VAGINAL HYSTERECTOMY UTERUS 250 GM/<; COMMENT: bso,endometrial CA OTHER SURGICAL HISTORY 10/03/2021 PROCEDURE: [place] ARTHRODESIS POSTERIOR INTERBODY 1 NTRSPC LUMBAR; COMMENT: L3-4 Dr. Meghann PIMENTEL TONSILLECTOMY ADENOIDECTOMY, BILATERAL MYRINGOTOMY AND TUBES PROCEDURE: MA TONSILLECTOMY & ADENOIDECTOMY <AGE 12 Anesthesia complications Denies Allergies Allergen Reactions Gabapentin Rash Morphine Rash Oxycodone Tramadol Rash Pt stated she is allergic to ALL pain medication except tylenol with codine Prior to Admission medications Medication Sig Start Date End Date Taking? Authorizing Provider albuterol 2.5 mg /3 mL (0.083 %) nebulizer solution Sig - Route: Take 1 Vial by nebulization once for 1 dose. - Nebulization Class: Historic Historical Provider, amLODIPine (NORVASC) 10 mg tablet Take 1 tablet (10 mg total) by mouth 1 (one) time each day. 05/12/23 Historical Provider, baclofen (LIORESAL) 10 mg tablet Take 1 tablet (10 mg total) by mouth 2 (two) times a day for 10 days. 03/12/24 03/22/24 Luis F Rodriguez MD bisacodyL (DULCOLAX) 5 mg EC tablet Take 2 tabs by mouth right before beginning bowel prep. Follow instructions given by office for timing. 09/09/23 Historical Provider, bisacodyL (DULCOLAX) 5 mg EC tablet Take 2 tablets by mouth right before beginning bowel prep. See instructions provided by the office 03/23/24 Mirtha Hinton NP blood sugar diagnostic (Accu-Chek Porsha Plus test strp) test strip 1 each by Other route 2 (two) times a day. 10/12/19 Historical Provider, blood sugar diagnostic (FreeStyle Lite Strips) test strip Use for testing BS twice daily 07/17/23 Historical Provider, blood-glucose meter kit 1 Device by Does not apply route daily. Use for testing BS twice daily 07/17/23 Historical Provider, bromfenac 0.07 % drops Sig: instill 1 drop in each affected eye qd Historical Provider, budesonide-formoteroL (SYMBICORT) 160-4.5 mcg/actuation inhaler Inhale 2 puffs by mouth 2 (two) times a day. Historical Provider, docusate sodium (COLACE) 100 mg capsule Sig - Route: Apply 1 g topically 2 times daily as needed (Joint pain). - Apply externally Sent to pharmacy as: Diclofenac Sodium 1 % External Gel 10/05/21 Historical Provider, dulaglutide (Trulicity) 0.75 mg/0.5 mL pen injector injection Inject 0.5 mL (0.75 mg total) under the skin every 7 (seven) days. 05/15/23 Historical Provider, DULoxetine (CYMBALTA) [address] capsule Take 1 capsule (30 mg total) by mouth 2 (two) times a day. 04/17/21 Historical Provider, famotidine (PEPCID) 20 mg tablet Take 1 tablet (20 mg total) by mouth 2 (two) times a day. 03/07/23Historical Provider, fluticasone propionate (FLONASE) 50 mcg/actuation nasal spray Sig: Use 1 spray(s) in each nostril once daily Sent to pharmacy as: Fluticasone Propionate 50 MCG/ACT Nasal Suspension 08/07/21 Historical Provider, MD MATHEWYLE LANCETS MISC Use for testing BS twice daily 07/17/23 Historical Provider, furosemide (LASIX) 20 mg tablet Take 1 tablet (20 mg total) by mouth 1 (one) time each day if needed (bilateral leg swelling). 09/25/22 Historical Provider, glucose blood test strip Apply 1 each topically 2 (two) times a day. 10/08/21 Historical Provider, ipratropium-albuteroL (COMBIVENT RESPIMAT) 20-100 mcg/actuation inhaler Sig - Route: Inhale 1 Puff into the lungs 4 times daily for 30 days. - Inhalation Sent to pharmacy as: Ipratropium-Albuterol 20-100 MCG/ACT Inhalation Aerosol Solution E-Prescribing Status: Receipt confirmed by pharmacy (08/18/2018 11:15 AM EDT) 08/18/18 Historical Provider, lactulose (CHRONULAC) solution Take 15 mL (10 g total) by mouth 1 (one) time each day with breakfast. 02/23/20 Historical Provider, levothyroxine (SYNTHROID, LEVOTHROID) 75 mcg tablet Sig - Route: Take 1 Tablet by mouth daily. Takean extra half a tab a week - Oral Sent to pharmacy as: Levothyroxine Sodium 75 MCG Oral Tablet (SYNTHROID, LEVOTHROID) 02/27/23 Historical Provider, linaCLOtide (Linzess) 72 mcg capsule Take 1 capsule (72 mcg total) by mouth 1 (one) time each day. 02/19/21 Historical Provider, loratadine (CLARITIN) 10 mg tablet Take 1 tablet (10 mg total) by mouth 1 (one) time each day. 03/07/23 Historical Provider, losartan-hydroCHLOROthiazide (HYZAAR) 100-12.5 mg per tablet Take 1 tablet by mouth 1 (one) time each day. 05/12/23 Historical Provider, meclizine (ANTIVERT) 25 mg tablet Take 1 tablet (25 mg total) by mouth 3 (three) times a day if needed for dizziness. 11/03/20 Historical Provider, metFORMIN XR (GLUCOPHAGE-XR) 500 mg 24 hr tablet Sig - Route: Take 1 Tablet by mouth 2 times daily (with meals). - Oral Sent to pharmacy as: metFORMIN HCl ER 500 MG Oral Tablet Extended Release 24 Hour (GLUCOPHAGE-XR) 03/04/23 Historical Provider, montelukast (SINGULAIR) 10 mg tablet Take 1 tablet (10 mg total) by mouth at bedtime. 03/07/23 Historical Provider, polyethylene glycol (Golytely) 236-22.74-6.74 -5.86 gram solution Take 4L by mouth once for one dose. May substitue any PEG. Starting at 6PM the night before your procedure drink 1 8oz glasses at your own pace until you complete half of the gallon. Finish half of the gallon 5 hours before your procedure. 03/23/24 Mirtha Hinton NP pravastatin (PRAVACHOL) 40 mg tablet Take 1 tablet (40 mg total) by mouth 1 (one) time each day. 03/11/23 Historical Provider, MD GARCIA MIS Incontinence Supply Disposable (Dispos Underpads/45g/23 x36 ) Misc Sig - Route: 7 Each by route daily as needed (for overflow incontinence Dx: N39.40, E11.40, M51.39,R26.81). Indefinite Use - Class: Print Historical Provider, I have personally reviewed all the patient's medications with them prior to anesthesia. Current In-hospital Medications Social History Tobacco Use Smoking status: Never Smokeless tobacco: Never Substance Use Topics Alcohol use: No Drug use: No Is the patient a current smoker (e.g. cigarette, cigar, pip, e-cigarette, or mariajuana)? Yes [] No[] Patient previously instructed to abstain from smoking on the day of procedure? Yes [] No[] Patient smoked on the day of procedure? Yes [] No[] ASPIRE smoking VBR: [] Not interested in quitting [] Interested in quitting- referred to treatment [] Interested in quitting - treatment provided Visit Vitals Smoking Status Never LABS: No results found for: WBC , HGB , HCT , MCV , PLT No results found for: GLUCOSE , CALCIUM , NA , K , CO2 , CL , BUN , CREATININE No results found for: INR , PROTIME No results found for: PTT Relevant Problems Cardio (+) Bilateral carotid artery stenosis (+) Hypertension Pulmonary (+) Cough variant asthma (+) Obstructive sleep apnea syndrome in adult Endo (+) Hypothyroidism GI (+) GERD (gastroesophageal reflux disease) Clinical information reviewed: Allergies OB Status Anesthesia Plan ASA 3 Anesthesia Plan: MAC Induction method: intravenous Anesthetic plan and risks discussed with patient. Anesthesia Evaluation History of anesthetic complications Airway Mallampati: II Thyromental distance: > 3 finger breadths Neck ROM: fullnot intubatedno noted risk Dental - normal exam Pulmonary breath sounds clear to auscultation (+) asthma, sleep apnea Cardiovascular (+) hypertension Rhythm: regular Rate: normal Neuro/Psych Comments: Back pain, lumbar sx, neuropathy GI/Hepatic/Renal (+) GERD Endo/Other (+) diabetes mellitus type 2, hypothyroidism Comments: Stopped Trulicity 2 weeks ago Abdominal PONV RISK SCORE: 2 There were no vitals filed for this visit. SpO2 Readings from Last 1 Encounters: No data found for SpO2 No results found for: WBC , RBC , HGB , HCT , PLT , MCV Allergies Allergen Reactions Gabapentin Rash Morphine Rash Oxycodone Tramadol Rash Pt stated she is allergic to ALL pain medication except tylenol with codine STOP BANG: No data recorded NPO Status: Time of Last Liquid: 0700 Time of Last Solid: 1800 documented in this encounter Plan of Treatment Upcoming Encounters Date Type Department Care Team (Late st Contact Info) Description 04/16/2024 12:45 PM EST Appointment Ultrasound - [address] [phone] 06/09/2024 10:00 AM EDT Office Visit Endocrinology [address] [phone] Tammy De Santiago PA [address] [place] [id number] 07/29/2024 9:45 AM EDT Office Visit Internal Medicine - [address] [phone] Luis F Rodriguez MD [address] [place] [id number] documented as of this encounter Visit Diagnoses Not on filedocumented in this encounter Administered Medications Inactive Administered Medications - up to 3 most recent administrations Medication Order MAR Action Action Date Dose Rate Site benzocaine (HURRICAINE) 20 % mucosal spray Mouth/Throat, As needed, Starting on Fri04/06/24 at 0950, Anesthesia Intraprocedure Given 04/06/2024 10:09 AM EST 1 spray lactated Ringer's infusion intravenous, Continuous PRN, Starting on Fri04/06/24 at 1003, Anesthesia Intraprocedure New Bag 04/06/2024 10:03 AM EST lidocaine (PF) (XYLOCAINE-MPF) 2 % injection injection, As needed, Starting on Fri04/06/24 at 1012, Anesthesia Intraprocedure Given 04/06/2024 10:12 AM EST 100 mg propofoL (DIPRIVAN) injection intravenous, As needed, Starting on Fri04/06/24 at 1012, Anesthesia Intraprocedure Given 04/06/2024 10:27 AM EST 50 mg Given 04/06/2024 10:23 AM EST 50 mg Given 04/06/2024 10:18 AM EST 100 mg documented in this encounter Care Teams Search Engine Marketing Manager Relationship Specialty Start Date End Date Luis F Rodriguez MD [address] [place] [id number] PCP - General Internal Medicine 08/29/16 documented as of this encounter
--- OUTSIDE RECORDS SUMMARY | 2024-04-13 11:28 | XMS_ITS | Encounter Summary ---
Author Organization [facility] Address [address] [place] [address] Care Team Providers Care Cosmetic Account Coordinator Name Role Phone Luis F Rodriguez MD Primary Care Provider [phone] Reason for Referral * Hospital - Outpatient (Routine) - Pending Review Specialty Diagnoses / Procedures Referred By Jaileneac t Referred To Contact Diagnoses Gastroesophageal reflux disease without esophagitis Procedures EGD Anesthesia - MAC; [facility] ENDOSCOPY Evangelista Travis DO [address] [address] [facility] Referral ID Status Reason Start Date Expiration Date V isits Requested Visits Authorized [id number] Pending Review 04/06/2024 04/06/2025 1 1 * Hospital - Outpatient (Routine) - Closed Specialty Diagnoses / Procedures Referred By Contlulu moser Referred To Contact Diagnoses Hx of colonic polyps Procedures COLONOSCOPY Anesthesia - MAC; [facility] ENDOSCOPY Evangelista Travis DO [address] [address] [facility] Referral ID Status Reason Start Date Expiration Date Visits Re quested Visits Authorized [id number] Closed 01/11/2024 01/10/2025 1 1 Reason for Visit * Hospital - Outpatient (Routine) - Closed Specialty Diagnoses / Procedures Referred By Contac t Referred To Contact Diagnoses Hx of colonic polyps Procedures COLONOSCOPY Anesthesia - MAC; [facility] ENDOSCOPY Evangelista Travis DO [address] [address] [facility] Referral ID Status Reason Start Date Expiration Date Visits Re quested Visits Authorized [id number] Closed 01/11/2024 01/10/2025 1 1 Encounter Details Date Type Department Care Team (Latest Contact Info) Description 04/06/2024 9:08 AM EST - 04/06/2024 11:59 PM EST Hospital Encounter [facility] Endoscopy [address] [place] [id number] Evangelista Travis DO [address] [address] Ilana Nina, [address] [address] Hx of colonic polyps; Gastroesophageal reflux disease without esophagitis Discharge Disposition: Home or Self Care Social History Tobacco Use Types Packs/Day Years [...] on file documented as of this encounter Last Filed Vital Signs Vital Sign Reading Time Taken Comments Blood Pressure 148/88 04/06/2024 11:01 AM EST Pulse 81 04/06/2024 11:01 AM EST Temperature 36.1 ??C (96.9 ??F) 04/06/2024 9:43 AM ES T Respiratory Rate 17 04/06/2024 11:01 AM EST Oxygen Saturation 96% 04/06/2024 11:01 AM EST Inhaled Oxygen Concentration - - Weight 109 kg (240 lb) 04/06/2024 9:43 AM EST Height 157.5 cm (5' 2 ) 04/06/2024 9:43 AM EST Body Mass Index 43.9 04/06/2024 9:43 AM EST documented in this encounter Discharge Instructions * Attachments The following attachments cannot be sent through Care Everywhere. * EGD (Upper Endoscopy): Post-op (Stateless) * Colonoscopy: Post-op (Stateless) documented in this encounter Medications at Time of Discharge Medication Sig Dispensed Refills Start Date End Date dulaglutide (Trulicity) 0.75 mg/0.5 mL pen injector injection Inject 0.5 mL (0.75 mg total) under the skin every 7 (seven) days. 05/15/2023 DULoxetine (CYMBALTA) [address] capsule Take 1 capsule (30 mg total) by mouth 2 (two) times a day. 04/17/2021 levothyroxine (SYNTHROID, LEVOTHROID) 75 mcg tablet Sig - Route: Take 1 Tablet by mouth daily. Take an extra half a tab a week - Oral Sent to pharmacy as: Levothyroxine Sodium 75 MCG Oral Tablet (SYNTHROID, LEVOTHROID) 02/27/2023 montelukast (SINGULAIR) 10 mg tablet Take 1 tablet (10 mg total) by mouth at bedtime. 03/07/2023 pravastatin (PRAVACHOL) 40 mg tablet Take 1 tablet (40 mg total) by mouth 1 (one) time each day. 03/11/2023 albuterol 2.5 mg /3 mL (0.083 %) nebulizer solution Sig - Route: Take 1 Vial by nebulization once for 1 dose. - Nebulization Class: Historic amLODIPine (NORVASC) 10 mg tablet Take 1 tablet (10 mg total) by mouth 1 (one) time each day. 05/12/2023 bisacodyL (DULCOLAX) 5 mg EC tablet Take 2 tabs by mouth right before beginning bowel prep. Follow instructions given by office for timing. 09/09/2023 bisacodyL (DULCOLAX) 5 mg EC tablet Take 2 tablets by mouth right before beginning bowel prep. See instructions provided by the office 2 tablet 03/23/2024 blood sugar diagnostic (Accu-Chek Porsha Plus test strp) test strip 1 each by Other route 2 (two) times a day. 10/12/2019 blood sugar diagnostic (FreeStyle Lite Strips) test strip Use for testing BS twice daily 07/17/2023 blood-glucose meter kit 1 Device by Does not apply route daily. Use for testing BS twice daily 07/17/2023 bromfenac 0.07 % drops Sig: instill 1 drop in each affected eye qd budesonide-formoteroL (SYMBICORT) 160-4.5 mcg/actuation inhaler Inhale 2 puffs by mouth 2 (two) times a day. docusate sodium (COLACE) 100 mg capsule Sig - Route: Apply 1 g topically 2 times daily as needed (Joint pain). - Apply externally Sent to pharmacy as: Diclofenac Sodium 1 % External Gel 10/05/2021 famotidine (PEPCID) 20 mg tablet Take 1 tablet (20 mg total) by mouth 2 (two) times a day. 03/07/2023 fluticasone propionate (FLONASE) 50 mcg/actuation nasal spray Sig: Use 1 spray(s) in each nostril once daily Sent to pharmacy as: Fluticasone Propionate 50 MCG/ACT Nasal Suspension 08/07/2021 FREESTYLE LANCETS MISC Use for testing BS twice daily 07/17/2023 furosemide (LASIX) 20 mg tablet Take 1 tablet (20 mg total) by mouth 1 (one) time each day if needed (bilateral leg swelling). 09/25/2022 glucose blood test strip Apply 1 each topically 2 (two) times a day. 10/08/2021 ipratropium-albuteroL (COMBIVENT RESPIMAT) 20-100 mcg/actuation inhaler Sig - Route: Inhale 1 Puff into the lungs 4 times daily for 30 days. - Inhalation Sent to pharmacy as: Ipratropium-Albuterol 20-100 MCG/ACT Inhalation Aerosol Solution E-Prescribing Status: Receipt confirmed by pharmacy (08/18/2018 11:15 AM EDT) 08/18/2018 lactulose (CHRONULAC) solution Take 15 mL (10 g total) by mouth 1 (one) time each day with breakfast. 02/23/2020 linaCLOtide (Linzess) 72 mcg capsule Take 1 capsule (72 mcg total) by mouth 1 (one) time each day. 02/19/2021 loratadine (CLARITIN) 10 mg tablet Take 1 tablet (10 mg total) by mouth 1 (one) time each day. 03/07/2023 losartan-hydroCHLOROth iazide (HYZAAR) 100-12.5 mg per tablet Take 1 tablet by mouth 1 (one) time each day. 05/12/2023 meclizine (ANTIVERT) 25 mg tablet Take 1 tablet (25 mg total) by mouth 3 (three) times a day if needed for dizziness. 11/03/2020 metFORMIN XR (GLUCOPHAGE-XR) 500 mg 24 hr tablet Sig - Route: Take 1 Tablet by mouth 2 times daily (with meals). - Oral Sent to pharmacy as: metFORMIN HCl ER 500 MG Oral Tablet Extended Release 24 Hour (GLUCOPHAGE-XR) 03/04/2023 polyethylene glycol (Golytely) 236-22.74-6.74 -5.86 gram solution Take 4L by mouth once for one dose. May substitue any PEG. Starting at 6PM the night before your procedure drink 1 8oz glasses at your own pace until you complete half of the gallon. Finish 2nd half of the gallon 5 hours before your procedure. 4000 mL 03/23/2024 UNDERPADS MISC Incontinence Supply Disposable (Dispos Underpads/45g/23 x36 ) Misc Sig - Route: 7 Each by ? route daily as needed (for overflow incontinence ??Dx: N39.40, ??E11.40, ??M51.39, ??R26.81). Indefinite Use - ? Class: Print documented as of this encounter Discharge Disposition Disposition Code Departure Means Destination Home or Self Care documented in this encounter Progress Notes * Lacy Bashir RN - 04/06/2024 10:59 AM EST Problem: Cognitive:Periop Procedure - Minor Goal: Knowledge of disease or condition will improve Outcome: Adequate for Discharge Problem: Sensory:Periop Procedure - Minor Goal: Demonstrates/reports adequate pain control Outcome: Adequate for Discharge * Opal Minor RN - 04/06/2024 10:19 AM EST Egd End time 1020 Colon Start Time 1025 * Evangelista Travis DO - 04/06/2024 10:00 AM EST Please let the patient know that her esophagus biopsies confirm the presence of active acid relatedinflammation without any precancer cells or infections. I recommend that she increases her famotidine to 40 mg twice daily. She should follow-up with her PCP as instructed and with GI in an as-neededbasis. Thank you. * Luz Matos MA - 04/06/2024 10:00 AM EST Patient informed with propeller layout worker. * Elizabeth Younger RN - 04/06/2024 9:19 AM EST Problem: Cognitive:Periop Procedure - Minor Goal: Knowledge of disease or condition will improve Outcome: Progressing Problem: Sensory:Periop Procedure - Minor Goal: Demonstrates/reports adequate pain control Outcome: Progressing.endo documented in this encounter H&P Notes * Evangelista Travis DO - 04/06/2024 10:00 AM EST Pre-Op Diagnosis: gerd, surveillance Proposed Procedure: egd/colon Performing Surgeon/MD/Endoscopist: Evangelista Travis DO Medical/History: Past Medical History: Diagnosis Date Asthma 10/22/2016 DX:Asthma Bilateral carotid artery stenosis 11/13/2020 DX:Bilateral carotid artery stenosis Cataract 01/10/2017 DX:Cataract; COMMENT: Surgery 05/17/14 Conjunctival chalasis, bilateral 01/10/2017 DX:Conjunctival chalasis, bilateral GERD (gastroesophageal reflux disease) 10/22/2016 DX:GERD (gastroesophageal reflux disease) Glenohumeral arthritis 07/04/2017 DX:Glenohumeral arthritis; COMMENT: Shoulders bilat. Cortisone injections NEOS History of endometrial cancer 08/16/2010 DX:History of endometrial cancer; COMMENT: Subtotal johanne bso 1999 high grade endometrial ca + margins but neg biopsy by Dr Stock 2002 and neg paps after HLD (hyperlipidemia) 10/22/2016 DX:HLD (hyperlipidemia) HTN (hypertension) 10/22/2016 DX:HTN (hypertension) Hypothyroidism 10/22/2016 DX:Hypothyroidism Morbid obesity with BMI of 40.0-44.9, adult (CMS/HCC) 12/31/2016 DX:Morbid obesity with BMI of 40.0-44.9, adult ([facility]) Neuropathy of both feet 06/24/2017 DX:Neuropathy of both feet Osteoarthritis of knees, bilateral 06/17/2017 DX:Osteoarthritis of knees, bilateral; COMMENT: chronic knee pain, followed at [facility]. 05/2016 x ray: endstage arthritic changes w/ noted osteophyte formation. (Not a candidate for TKR until wt down to 215 and DM under control w/ H A1C < 8.) s/p Lynn One injection bilat 06/28/2016. 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 CATARACT EXTRACTION Left 05/17/2014 PROCEDURE: HISTORICAL CATARACT REMOVAL; COMMENT: Dr Blake Hahn CATARACT EXTRACTION Right 05/05/2014 PROCEDURE: HISTORICAL CATARACT REMOVAL SECTION PROCEDURE: SD DELIVERY ONLY; COMMENT: x 1 CHOLECYSTECTOMY PROCEDURE: SD LAPAROSCOPY SURG CHOLECYSTECTOMY COLONOSCOPY 08/14/2018 PROCEDURE: HISTORICAL COLONOSCOPY; COMMENT: 8 mm polyp in ascending colon (sessile), internal hemorrhoids HYSTERECTOMY PROCEDURE: SD VAGINAL HYSTERECTOMY UTERUS 250 GM/<; COMMENT: bso,endometrial CA OTHER SURGICAL HISTORY 10/03/2021 PROCEDURE: SD ARTHRODESIS POSTERIOR INTERBODY 1 NTRSPC LUMBAR; COMMENT: L3-4 Dr. Meghann PIMENTEL TONSILLECTOMY ADENOIDECTOMY, BILATERAL MYRINGOTOMY AND TUBES PROCEDURE: SD TONSILLECTOMY & ADENOIDECTOMY <AGE 12 Medications/Allergies: Prior to Admission medications Medication Sig Start Date End Date Taking? Authorizing Provider dulaglutide (Trulicity) 0.75 mg/0.5 mL pen injector injection Inject 0.5 mL (0.75 mg total) under the skin every 7 (seven) days. 05/15/23 Yes Historical Provider, DULoxetine (CYMBALTA) [address] capsule Take 1 capsule (30 mg total) by mouth 2 (two) times a day. 04/17/21 Yes Historical Provider, levothyroxine (SYNTHROID, LEVOTHROID) 75 mcg tablet Sig - Route: Take 1 Tablet by mouth daily. Takean extra half a tab a week - Oral Sent to pharmacy as: Levothyroxine Sodium 75 MCG Oral Tablet (SYNTHROID, LEVOTHROID) 02/27/23 Yes Historical Provider, montelukast (SINGULAIR) 10 mg tablet Take 1 tablet (10 mg total) by mouth at bedtime. 03/07/23 Yes Historical Provider, pravastatin (PRAVACHOL) 40 mg tablet Take 1 tablet (40 mg total) by mouth 1 (one) time each day. 03/11/23 Yes Historical Provider, albuterol 2.5 mg /3 mL (0.083 %) [...] 1 % External Gel 10/05/21 Historical Provider, famotidine (PEPCID) 20 mg tablet [...] each day with breakfast. 02/23/20 Historical Provider, linaCLOtide (Linzess) 72 mcg capsule Take 1 capsule (72 mcg total) by mouth 1 (one) time each day. 02/19/21 Historical ProviderMD loratadine (CLARITIN) 10 mg tablet Take 1 tablet (10 mg total) by mouth 1 (one) time each day. 03/07/23 Historical ProviderMD losartan-hydroCHLOROthiazide (HYZAAR) 100-12.5 mg per tablet Take 1 tablet by mouth 1 (one) time each day. 05/12/23 Historical ProviderMD meclizine (ANTIVERT) 25 mg tablet Take 1 [...] Extended Release 24 Hour (GLUCOPHAGE-XR) 03/04/23 Historical ProviderMD polyethylene glycol (Golytely) 236-22.74-6.74 -5.86 gram solution Take 4L by mouth once for one dose. May substitue any PEG. Starting at 6PM the night before your procedure drink 1 8oz glasses at your own pace until you complete half of the gallon. Finish 2nd half of the gallon 5 hours before your procedure. 03/23/24 Mirtha Hinton NP UNDERPADS MISC Incontinence Supply Disposable (Dispos Underpads/45g/23 x36 ) Misc Sig - Route: 7 Each by route daily as needed (for overflow incontinence Dx: N39.40, E11.40, M51.39,R26.81). Indefinite Use - Class: Print Historical Provider, Patient Age:78 y.o. Vitals: Vitals: 04/06/24 0943 BP: (!) 181/74 Pulse: 77 Resp: 16 Temp: 36.1 ??C (96.9 ??F) SpO2: 100% Physical Exam: Mental Status: Clear HEENT: WNL Heart: WNL Lungs: WNL Abdomen: WNL Extremities: WNL Neuro: WNL Labs: Imaging: Diagnosis/Plan: egd/colon documented in this encounter Procedure Notes * Lacy Bashir RN - 04/06/2024 11:00 AM EST FINDINGS AND DISCHARGE INSTRUCTIONS REVIEWED WITH PT. PT VERBALIZES UNDERSTANDING. PT LORNA PO PRIOR TO D/C. PT D/C'D WITH BELONGINGS. * Lacy Bashir RN - 04/06/2024 10:56 AM EST FINDINGS AND DISCHARGE INSTRUCTIONS REVIEWED WITH PT. PT VERBALIZES UNDERSTANDING. PT LORNA PO PRIOR TO D/C. PT D/C'D WITH BELONGINGS. documented in this encounter Plan of Treatment Upcoming Encounters Date Type Department Care Team (Late st Contact Info) Description 04/16/2024 12:45 PM EST Appointment Ultrasound - [address] [phone] 06/09/2024 10:00 AM EDT Office Visit Endocrinology [address] [phone] Tammy De Santiago PA [address] [place] [id number] 07/29/2024 9:45 AM EDT Office Visit Internal Medicine - [address] [phone] Luis F Rodriguez MD [address] [place] [id number] documented as of this encounter Procedures Procedure Name Priority Date/Time Associated Diagnosis Comments COLONOSCOPY Routine 04/06/2024 10:40 AM EST Hx of colonic polyps EGD Routine 04/06/2024 10:40 AM EST Gastroesophageal reflux disease without esophagitis TISSUE EXAM Routine 04/06/2024 10:19 AM EST Hx of colonic polyps Gastroesophageal reflux disease without esophagitis documented in this encounter Results * EGD Anesthesia - MAC; [facility] ENDOSCOPY (04/06/2024 10:40 AM EST) Anatomical Region Laterality Modality Endoscopy 04/06/2024 9:43 AM EST Impressions 04/06/2024 10:23 AM EST - Z-line irregular, 37 cm from the incisors. Biopsied. ? - Gastric bypass. ? - Normal examined jejunum. Recommendation: ?- Discharge patient to home. ? - Resume previous diet. ? - Continue present medications. ? - Await pathology results. Narrative 04/06/2024 10:[address] [facility] GI Patient Name: Viviana Menjivar Procedure Date: 04/06/2024 9:43 AM Date of : 1945 Age: 78 Gender: Female Note Status: Finalized Attending MD: Evangelista Travis DO, [id number] Procedure Date No Time: 04/06/2024 Procedure: ? Upper GI endoscopy Indications: ? Heartburn Providers: ? Evangelista Travis DO Referring MD: ?Luis F Rodriguez MD Medicines: ? Monitored Anesthesia Care Complications: ? No immediate complications. Estimated blood loss: ? Minimal. Estimated Blood Loss: ? Estimated blood loss was minimal. Procedure: ? Pre-Anesthesia Assessment: ? - - Prior to the procedure, a History and Physical was ? performed, and patient medications and allergies were ? reviewed. The patient is competent. The risks and ? benefits of the procedure and the sedation options and ? risks were discussed with the patient. All questions ? were answered and informed consent was obtained. ? Patient identification and proposed procedure were ? verified by the physician, the nurse, the ? anesthesiologist, the solid surface fabricator and the aviation electronics technician ? in the pre-procedure area in the endoscopy suite. ? Mental Status Examination: alert and oriented. Airway ? Examination: normal oropharyngeal airway and neck ? mobility. Respiratory Examination: clear to ? auscultation. CV Examination: normal. Prophylactic ? Antibiotics: The patient does not require prophylactic ? antibiotics. Prior Anticoagulants: The patient has ? taken no anticoagulant or antiplatelet agents. ASA ? Grade Assessment: II - A patient with severe systemic ? disease. After reviewing the risks and benefits, the ? patient was deemed in satisfactory condition to ? undergo the procedure. The anesthesia plan was to use ? monitored anesthesia care (MAC). Immediately prior to ? administration of medications, the patient was ? re-assessed for adequacy to receive sedatives. The ? heart rate, respiratory rate, oxygen saturations, ? blood pressure, adequacy of pulmonary ventilation, and ? response to care were monitored throughout the ? procedure. The physical status of the patient was ? re-assessed after the procedure. ? - - Prior to the procedure, a History and Physical was ? performed, and patient medications and allergies were ? reviewed. The patient is competent. The risks and ? benefits of the procedure and the sedation options and ? risks were discussed with the patient. All questions ? were answered and informed consent was obtained. ? Patient identification and proposed procedure were ? verified by the physician, the nurse, the ? anesthesiologist, the solid surface fabricator and the aviation electronics technician ? in the pre-procedure area in the endoscopy suite. ? Mental Status Examination: alert and oriented. Airway ? Examination: normal oropharyngeal airway and neck ? mobility. Respiratory Examination: clear to ? auscultation. CV Examination: normal. Prophylactic ? Antibiotics: The patient does not require prophylactic ? antibiotics. Prior Anticoagulants: The patient has ? taken no anticoagulant or antiplatelet agents. ASA ? Grade Assessment: II - A patient with severe systemic ? disease. After reviewing the risks and benefits, the ? patient was deemed in satisfactory condition to ? undergo the procedure. The anesthesia plan was to use ? monitored anesthesia care (MAC). Immediately prior to ? administration of medications, the patient was ? re-assessed for adequacy to receive sedatives. The ? heart rate, respiratory rate, oxygen saturations, ? blood pressure, adequacy of pulmonary ventilation, and ? response to care were monitored throughout the ? procedure. The physical status of the patient was ? re-assessed after the procedure. ? After obtaining informed consent, the endoscope was ? passed under direct vision. Throughout the procedure, ? the patient's blood pressure, pulse, and oxygen ? saturations were monitored continuously. The Endoscope ? was introduced through the mouth, and advanced to the ? jejunum. The upper GI endoscopy was accomplished ? without difficulty. The patient tolerated the ? procedure well. Findings: ?The Z-line was irregular and was found 37 cm from the ? incisors. Biopsies were taken with a cold forceps for ? histology. Estimated blood loss was minimal. ? Evidence of a gastric bypass was found. A gastric ? pouch was found. ? The examined jejunum was normal. Procedure Code(s): ? --- Professional --- ? 54602, Esophagogastroduodenoscopy, flexible, ? transoral; with biopsy, single or multiple Diagnosis Code(s): ? --- Professional --- ? K22.89, Other specified disease of esophagus ? Z98.84, Bariatric surgery status ? R12, Heartburn CPT copyright 2020 [employer]. All rights reserved. The codes documented in this report are preliminary and upon director prison review may be revised to meet current compliance requirements. EVANGELISTA Travis DO 04/06/2024 10:22:56 AM This report has been signed electronically.Evangelista Travis DO Number of Addenda: 0 Note Initiated On: 04/06/2024 9:43 AM Scope In: Scope Out: ? Endoscopy Department at [facility] - [address] [place] [address], ? [place] [address] Procedure Note Evangelista Travis DO - 04/06/2024 [facility] GI Patient Name: Viviana Menjivar Procedure Date: 04/06/2024 9:43 AM Date of : 1945 Age: 78 Gender: Female Note Status: Finalized Attending MD: Evangelista Travis DO, [id number] Procedure Date No Time: 04/06/2024 Procedure: Upper GI endoscopy Indications: Heartburn Providers: Evangelista Travis DO Referring MD: Luis F Rodriguez MD Medicines: Monitored Anesthesia Care Complications: No immediate complications. Estimated blood loss: Minimal. Estimated Blood Loss: Estimated blood loss was minimal. Procedure: Pre-Anesthesia Assessment: - - Prior to the procedure, a History and Physicalwas performed, and patient medications and allergieswere reviewed. The patient is competent. The risks and benefits of the procedure and the sedation optionsand risks were discussed with the patient. Allquestions were answered and informed consent was obtained. Patient identification and proposed procedure were verified by the physician, the nurse, the anesthesiologist, the solid surface fabricator and thetechnician in the pre-procedure area in the endoscopy suite. Mental Status Examination: alert and oriented.Airway Examination: normal oropharyngeal airway and neck mobility. Respiratory Examination: clear to auscultation. CV Examination: normal. Prophylactic Antibiotics: The patient does not requireprophylactic antibiotics. Prior Anticoagulants: The patient has taken no anticoagulant or antiplatelet agents. ASA Grade Assessment: II - A patient with severesystemic disease. After reviewing the risks and benefits,the patient was deemed in satisfactory condition to undergo the procedure. The anesthesia plan was touse monitored anesthesia care (MAC). Immediately priorto administration of medications, the patient was re-assessed for adequacy to receive sedatives. The heart rate, respiratory rate, oxygen saturations, blood pressure, adequacy of pulmonary ventilation,and response to care were monitored throughout the procedure. The physical status of the patient was re-assessed after the procedure. - - Prior to the procedure, a History and Physicalwas performed, and patient medications and allergieswere reviewed. The patient is competent. The risks and benefits of the procedure and the sedation optionsand risks were discussed with the patient. Allquestions were answered and informed consent was obtained. Patient identification and proposed procedure were verified by the physician, the nurse, the anesthesiologist, the solid surface fabricator and thetechnician in the pre-procedure area in the endoscopy suite. Mental Status Examination: alert and oriented.Airway Examination: normal oropharyngeal airway and neck mobility. Respiratory Examination: clear to auscultation. CV Examination: normal. Prophylactic Antibiotics: The patient does not requireprophylactic antibiotics. Prior Anticoagulants: The patient has taken no anticoagulant or antiplatelet agents. ASA Grade Assessment: II - A patient with severesystemic disease. After reviewing the risks and benefits,the patient was deemed in satisfactory condition to undergo the procedure. The anesthesia plan was touse monitored anesthesia care (MAC). Immediately priorto administration of medications, the patient was re-assessed for adequacy to receive sedatives. The heart rate, respiratory rate, oxygen saturations, blood pressure, adequacy of pulmonary ventilation,and response to care were monitored throughout the procedure. The physical status of the patient was re-assessed after the procedure. After obtaining informed consent, the endoscope was passed under direct vision. Throughout theprocedure, the patient's blood pressure, pulse, and oxygen saturations were monitored continuously. TheEndoscope was introduced through the mouth, and advanced tothe jejunum. The upper GI endoscopy was accomplished without difficulty. The patient tolerated the procedure well. Findings: The Z-line was irregular and was found 37 cm fromthe incisors. Biopsies were taken with a cold forcepsfor histology. Estimated blood loss was minimal. Evidence of a gastric bypass was found. A gastric pouch was found. The examined jejunum was normal. Procedure Code(s): --- Professional --- 07286, Esophagogastroduodenoscopy, flexible, transoral; with biopsy, single or multiple Diagnosis Code(s): --- Professional --- K22.89, Other specified disease of esophagus Z98.84, Bariatric surgery status R12, Heartburn CPT copyright 2020 [employer]. All rights reserved. The codes documented in this report are preliminary and upon director prison reviewmay be revised to meet current compliance requirements. EVANGELISTA Travis DO 04/06/2024 10:22:56 AM This report has been signed electronically.Evangelista Travis DO Number of Addenda: 0 Note Initiated On: 04/06/2024 9:43 AM Scope In: Scope Out: Endoscopy Department at [facility] - [address] [place] [id number] IMPRESSION: - Z-line irregular, 37 cm from the incisors. Biopsied. - Gastric bypass. - Normal examined jejunum. Recommendation: - Discharge patient to home. - Resume previous diet. - Continue present medications. - Await pathology results. Evangelista Travis DO GI~PROCEDURE ORDERAB LES * COLONOSCOPY Anesthesia - MAC; [facility] ENDOSCOPY (04/06/2024 10:40 AM EST) Anatomical Region Laterality Modality Endoscopy 04/06/2024 9:15 AM EST Impressions 04/06/2024 10:37 AM EST - Preparation of the colon was fair. ? - Hemorrhoids found on perianal exam. ? - Congested mucosa in the sigmoid colon. Biopsied. Recommendation: ?- Discharge patient to home. ? - Resume previous diet. ? - Continue present medications. ? - Await pathology results. Narrative 04/06/2024 10:[address] [facility] GI Patient Name: Viviana Menjivar Procedure Date: 04/06/2024 9:15 AM Date of : 1945 Age: 78 Gender: Female Note Status: Finalized Attending MD: Evangelista Travis DO, [id number] Procedure Date No Time: 04/06/2024 Procedure: ? Colonoscopy Indications: ? High risk colon cancer surveillance: Personal history ? of colonic polyps Providers: ? Evangelista Travis DO Referring MD: ?Luis F Rodriguez MD Medicines: ? Monitored Anesthesia Care Complications: ? No immediate complications. Estimated blood loss: ? Minimal. Estimated Blood Loss: ? Estimated blood loss was minimal. Procedure: ? Pre-Anesthesia Assessment: ? - - Prior to the procedure, a History and Physical was ? performed, and patient medications and allergies were ? reviewed. The patient is competent. The risks and ? benefits of the procedure and the sedation options and ? risks were discussed with the patient. All questions ? were answered and informed consent was obtained. ? Patient identification and proposed procedure were ? verified by the physician, the nurse, the ? anesthesiologist, the solid surface fabricator and the aviation electronics technician ? in the pre-procedure area in the endoscopy suite. ? Mental Status Examination: alert and oriented. Airway ? Examination: normal oropharyngeal airway and neck ? mobility. Respiratory Examination: clear to ? auscultation. CV Examination: normal. Prophylactic ? Antibiotics: The patient does not require prophylactic ? antibiotics. Prior Anticoagulants: The patient has ? taken no anticoagulant or antiplatelet agents. ASA ? Grade Assessment: II - A patient with severe systemic ? disease. After reviewing the risks and benefits, the ? patient was deemed in satisfactory condition to ? undergo the procedure. The anesthesia plan was to use ? monitored anesthesia care (MAC). Immediately prior to ? administration of medications, the patient was ? re-assessed for adequacy to receive sedatives. The ? heart rate, respiratory rate, oxygen saturations, ? blood pressure, adequacy of pulmonary ventilation, and ? response to care were monitored throughout the ? procedure. The physical status of the patient was ? re-assessed after the procedure. ? After I obtained informed consent, the scope was ? passed under direct vision. Throughout the procedure, ? the patient's blood pressure, pulse, and oxygen ? saturations were monitored continuously. The ? Colonoscope was introduced through the anus and ? advanced to the cecum, identified by appendiceal ? orifice and ileocecal valve. The colonoscopy was ? performed without difficulty. The patient tolerated ? the procedure well. The quality of the bowel ? preparation was fair. Findings: ?Hemorrhoids were found on perianal exam. ? A localized area of mildly congested mucosa was found ? in the sigmoid colon. Biopsies were taken with a cold ? forceps for histology. Estimated blood loss was ? minimal. Procedure Code(s): ? --- Professional --- ? 37769, Colonoscopy, flexible; with biopsy, single or ? multiple Diagnosis Code(s): ? --- Professional --- ? Z86.010, Personal history of colonic polyps ? K64.9, Unspecified hemorrhoids ? K63.89, Other specified diseases of intestine CPT copyright 2020 [employer]. All rights reserved. The codes documented in this report are preliminary and upon director prison review may be revised to meet current compliance requirements. EVANGELISTA Travis DO 04/06/2024 10:37:50 AM This report has been signed electronically.Evangelista Travis DO Number of Addenda: 0 Note Initiated On: 04/06/2024 9:15 AM Scope Withdrawal Time: 0 hours 7 minutes 1 second Scope In: 10:25:08 AM Scope Out: 10:36:03 AM ? Endoscopy Department at [facility] - [address] [place] [address], ? [place] [id number] Procedure Note Evangelista Travis DO - 04/06/2024 [facility] GI Patient Name: Viviana Menjivar Procedure Date: 04/06/2024 9:15 AM Date of : 1945 Age: 78 Gender: Female Note Status: Finalized Attending MD: Evangelista Travis DO, [id number] Procedure Date No Time: 04/06/2024 Procedure: Colonoscopy Indications: High risk colon cancer surveillance: Personalhistory of colonic polyps Providers: Evangelista Travis DO Referring MD: Luis F Rodriguez MD Medicines: Monitored Anesthesia Care Complications: No immediate complications. Estimated blood loss: Minimal. Estimated Blood Loss: Estimated blood loss was minimal. Procedure: Pre-Anesthesia Assessment: - - Prior to the procedure, a History and Physicalwas performed, and patient medications and allergieswere reviewed. The patient is competent. The risks and benefits of the procedure and the sedation optionsand risks were discussed with the patient. Allquestions were answered and informed consent was obtained. Patient identification and proposed procedure were verified by the physician, the nurse, the anesthesiologist, the solid surface fabricator and thetechnician in the pre-procedure area in the endoscopy suite. Mental Status Examination: alert and oriented.Airway Examination: normal oropharyngeal airway and neck mobility. Respiratory Examination: clear to auscultation. CV Examination: normal. Prophylactic Antibiotics: The patient does not requireprophylactic antibiotics. Prior Anticoagulants: The patient has taken no anticoagulant or antiplatelet agents. ASA Grade Assessment: II - A patient with severesystemic disease. After reviewing the risks and benefits,the patient was deemed in satisfactory condition to undergo the procedure. The anesthesia plan was touse monitored anesthesia care (MAC). Immediately priorto administration of medications, the patient was re-assessed for adequacy to receive sedatives. The heart rate, respiratory rate, oxygen saturations, blood pressure, adequacy of pulmonary ventilation,and response to care were monitored throughout the procedure. The physical status of the patient was re-assessed after the procedure. After I obtained informed consent, the scope was passed under direct vision. Throughout theprocedure, the patient's blood pressure, pulse, and oxygen saturations were monitored continuously. The Colonoscope was introduced through the anus and advanced to the cecum, identified by appendiceal orifice and ileocecal valve. The colonoscopy was performed without difficulty. The patient tolerated the procedure well. The quality of the bowel preparation was fair. Findings: Hemorrhoids were found on perianal exam. A localized area of mildly congested mucosa wasfound in the sigmoid colon. Biopsies were taken with acold forceps for histology. Estimated blood loss was minimal. Procedure Code(s): --- Professional --- 70057, Colonoscopy, flexible; with biopsy, singleor multiple Diagnosis Code(s): --- Professional --- Z86.010, Personal history of colonic polyps K64.9, Unspecified hemorrhoids K63.89, Other specified diseases of intestine CPT copyright 2020 [employer]. All rights reserved. The codes documented in this report are preliminary and upon director prison reviewmay be revised to meet current compliance requirements. EVANGELISTA Travis DO 04/06/2024 10:37:50 AM This report has been signed electronically.Evangelista Travis DO Number of Addenda: 0 Note Initiated On: 04/06/2024 9:15 AM Scope Withdrawal Time: 0 hours 7 minutes 1 second Scope In: 10:25:08 AM Scope Out: 10:36:03 AM Endoscopy Department at [facility] - [address] [place] [phone] IMPRESSION: - Preparation of the colon was fair. - Hemorrhoids found on perianal exam. - Congested mucosa in the sigmoid colon.Biopsied. Recommendation: - Discharge patient to home. - Resume previous diet. - Continue present medications. - Await pathology results. Evangelista Travis DO GI~PROCEDURE ORDERAB LES * Tissue exam (04/06/2024 10:19 AM EST) Final Diagnosis A. Esophagus, ge junction biopsies: Esophagogastric mucosa with chronic inflammation and reactive changes. No intestinal metaplasia or dysplasia identified. B. Sigmoid colitis biopsies: Focally denuded colonic mucosa with areas of hyperplastic changes and vascular congestion. No active or chronic colitis identified. 04/07/2024 1:13 PM [facility] HOSPITAL LAB Gross Description A. Esophagus, ge junction bx's: Labeled esophagus GE juncti . Received in formalin are two soft, white-pink to red tissues, approximately measuring 0.4 cm and 0.5 cm in greatest diameters, which are wrapped in paper and submitted in toto in one cassette, two pieces, multiple levels. B. Large Intestine, Sigmoid Colon, sigmoid colitis bx's: Labeled sigmoid colon . Received in formalin, is an approximately 0.3 cm in greatest diameter rubbery, gallo-red tissue fragment, which is wrapped in paper and submitted in toto in one cassette, one piece, multiple levels. dvb/DG 04/07/2024 1:13 PM EST [facility] Disclaimer Unless otherwise specified, all tissue is 10% NB formalin fixed and paraffin embedded. 04/07/2024 1:13 PM EST [facility] Tissue Esophageal structure / Unknown 04/06/2024 10:19 AM EST 04/06/2024 11:28 AM EST Tissue specimen (specimen) Sigmoid colon structure / Unknown 04/06/2024 10:34 AM EST 04/06/2024 11:28 AM EST Evangelista Travis DO LAB PATHOLOGY ORDERA BLES [facility] [address] [place] [address], documented in this encounter Visit Diagnoses Diagnosis Hx of colonic polyps Personal history of colonic polyps Gastroesophageal reflux disease without esophagitis Esophageal reflux documented in this encounter Orders Discharge Count Last Ordered Date First Orde red Date DISCHARGE PATIENT 1 04/06/2024 documented in this encounter Care Teams Cosmetic Account Coordinator Relationship Specialty Start Date End Date Luis F Rodriguez MD [address] [place] [id number] PCP - General Internal Medicine 08/29/16 documented as of this encounter
--- OUTSIDE RECORDS SUMMARY | 2024-04-13 11:28 | XMS_ITS | Clinical Summary ---
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 10/12/2019 Active DULoxetine (CYMBALTA) [address] capsule Take 1 capsule (30 mg total) by mouth 2 (two) times a day. 04/17/2021 Active famotidine (PEPCID) 20 mg tablet Take 1 tablet (20 mg total) by mouth 2 (two) times a day. 03/07/2023 Active fluticasone propionate (FLONASE) 50 mcg/actuation nasal spray Sig: Use 1 spray(s) in each nostril once daily Sent to pharmacy as: Fluticasone Propionate 50 MCG/ACT Nasal Suspension 08/07/2021 Active furosemide (LASIX) 20 mg tablet Take 1 tablet (20 mg total) by mouth 1 (one) time each day if needed (bilateral leg swelling). 09/25/2022 Active glucose blood test strip Apply 1 each topically 2 (two) times a day. 10/08/2021 Active ipratropium-albut Zelda (COMBIVENT RESPIMAT) 20-100 mcg/actuation inhaler Sig - Route: Inhale 1 Puff into the lungs 4 times daily for 30 days. - Inhalation Sent to pharmacy as: Ipratropium-Albuter ol 20-100 MCG/ACT Inhalation Aerosol Solution E-Prescribing Status: Receipt confirmed by pharmacy (08/18/2018 11:15 AM EDT) 08/18/2018 Active lactulose (CHRONULAC) solution Take 15 mL (10 g total) by mouth 1 (one) time each day with breakfast. 02/23/2020 Active levothyroxine (SYNTHROID, LEVOTHROID) 75 mcg tablet Sig - Route: Take 1 Tablet by mouth daily. Take an extra half a tab a week - Oral Sent to pharmacy as: Levothyroxine Sodium 75 MCG Oral Tablet (SYNTHROID, LEVOTHROID) 02/27/2023 Active linaCLOtide (Linzess) 72 mcg capsule Take 1 capsule (72 mcg total) by mouth 1 (one) time each day. 02/19/2021 Active loratadine (CLARITIN) 10 mg tablet Take 1 tablet (10 mg total) by mouth 1 (one) time each day. 03/07/2023 Active losartan-hydroCHL OROthiazide (HYZAAR) 100-12.5 mg per tablet Take 1 tablet by mouth 1 (one) time each day. 05/12/2023 Active meclizine (ANTIVERT) 25 mg tablet Take 1 tablet (25 mg total) by mouth 3 (three) times a day if needed for dizziness. 11/03/2020 Active metFORMIN XR (GLUCOPHAGE-XR) 500 mg 24 hr tablet Sig - Route: Take 1 Tablet by mouth 2 times daily (with meals). - Oral Sent to pharmacy as: metFORMIN HCl ER 500 MG Oral Tablet Extended Release 24 Hour (GLUCOPHAGE-XR) 03/04/2023 Active montelukast (SINGULAIR) 10 mg tablet Take 1 tablet (10 mg total) by mouth at bedtime. 03/07/2023 Active pravastatin (PRAVACHOL) 40 mg tablet Take 1 tablet (40 mg total) by mouth 1 (one) time each day. 03/11/2023 Active dulaglutide (Trulicity) 0.75 mg/0.5 mL pen injector injection Inject 0.5 mL (0.75 mg total) under the skin every 7 (seven) days. 05/15/2023 Active docusate sodium (COLACE) 100 mg capsule Sig - Route: Apply 1 g topically 2 times daily as needed (Joint pain). - Apply externally Sent to pharmacy as: Diclofenac Sodium 1 % External Gel 10/05/2021 Active budesonide-formot Zelda (SYMBICORT) 160-4.5 mcg/actuation inhaler Inhale 2 puffs by mouth 2 (two) times a day. Active bromfenac 0.07 % drops Sig: instill 1 drop in each affected eye qd Active amLODIPine (NORVASC) 10 mg tablet Take 1 tablet (10 mg total) by mouth 1 (one) time each day. 05/12/2023 Active UNDERPADS MISC Incontinence Supply Disposable (Dispos Underpads/45g/23 x3 6 ) Misc Sig - Route: 7 Each by ? route daily as needed (for overflow incontinence ??Dx: N39.40, ??E11.40, ??M51.39, ??R26.81). Indefinite Use - ? Class: Print Active bisacodyL (DULCOLAX) 5 mg EC tablet Take 2 tabs by mouth right before beginning bowel prep. Follow instructions given by office for timing. 09/09/2023 Active blood-glucose meter kit 1 Device by Does not apply route daily. Use for testing BS twice daily 07/17/2023 Active blood sugar diagnostic (FreeStyle Lite Strips) test strip Use for testing BS twice daily 07/17/2023 Active FREESTYLE LANCETS MISC Use for testing BS twice daily 07/17/2023 Active albuterol 2.5 mg /3 mL (0.083 %) nebulizer solution Sig - Route: Take 1 Vial by nebulization once for 1 dose. - Nebulization Class: Historic Active baclofen (LIORESAL) 10 mg tablet Take 1 tablet (10 mg total) by mouth 2 (two) times a day for 10 days. 20 each 03/12/2024 Active polyethylene glycol (Golytely) 236-22.74-6.74 -5.86 gram solution Take 4L by mouth once for one dose. May substitue any PEG. Starting at 6PM the night before your procedure drink 1 8oz glasses at your own pace until you complete half of the gallon. Finish 2nd half of the gallon 5 hours before your procedure. 4000 mL 03/23/2024 Active bisacodyL (DULCOLAX) 5 mg EC tablet Take 2 tablets by mouth right before beginning bowel prep. See instructions provided by the office 2 tablet 03/23/2024 Active acetaminophen (Tylenol 8 Hour) 650 mg 8 hr tablet Take 1 tablet (650 mg total) by mouth 2 (two) times a day if needed for mild pain for up to 10 days. Do not crush, chew, or split. 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 She is not experiencing any fevers, small amount of serous drainage noted on her T-shirt today. She is using Dilaudid 2-3 times/ day for incisional/back pain. She states if she has to stand greater than 10-15 minutes, she gets low back pain. She does note improvements in her preop symptoms, now she can stand alone, she can stand without getting radicular leg pain, she notes that her lumbar range of motion/movement is improving. She has been getting home physical therapy, states there teaching her how to get in and out of bed, do the stairs. Patient's wound continues to heal well, no signs of infection. The seroma on the right upper incision is decreasing in size. Patient is ambulating with a walker. She will have her family continue to monitor the incision, if there is any increasing drainage, fevers, signs of infection, they will call for a wound check appointment. Otherwise she has an appointment in [address] Zavaleta, with lumbar spine x-rays. All postop questions answered. Patient requested refill on Dilaudid, #30 tabs sent to her pharmacy. Bilateral carotid artery stenosis 11/13/2020 Overview (05/29/2023): 0-49% stenosis of the internal carotid arteries bilaterally Assessment & Plan (03/12/2024 1:13 PM EST): Carotid duplex ordered. Continue statin therapy. Orders: Vascular US duplex carotid bilateral; Future Constipation 07/10/2020 Glenohumeral arthritis 07/04/2017 Overview (05/29/2023): Shoulders bilat. Cortisone injections NEOS Neuropathy of both feet 06/24/2017 Osteoarthritis of knees, bilateral 06/17/2017 Overview (05/29/2023): 05/2016 x ray: endstage arthritic changes w/ noted osteophyte formation. (Not a candidate for TKR until wt down to 215 and DM under control w/ H A1C < 8.) s/p Lynn One injection bilat 06/28/2016. Conjunctival chalasis, bilateral 01/10/2017 Cataract 01/10/2017 Overview (05/29/2023): Surgery 05/17/14 Obstructive sleep apnea syndrome in adult 2016 Overview (05/29/2023): BiPAP SMS Home Polysomnogram: Date 07/06/2018; Wt 247#; PRIMO 13, AI 2; HI 11; Unclassified apneas 0; Obstructive apneas 17; Central apneas 0; Mixed apneas 1; hypopneas 84; average oxygen saturation 93% (lowest 80% without saturations <88% for 5% or more of study) - Obstructive Sleep Apnea - mild; mostly hypopneas with some obstructive apneas; without sleep related hypoventilation by 2019 home polysomnogram. Type 2 diabetes mellitus wit h diabetic neuropathy, unspecified 10/22/2016 Hypothyroidism 10/22/2016 Assessment & Plan (03/12/2024 1:13 PM EST): Continue current dose of levothyroxine. Hypertension 10/22/2016 Assessment & Plan (03/12/2024 1:13 PM EST): Patient follow low-sodium diet. Continue current regimen of amlodipine, losartan-hydrochlorothiazide. HLD (hyperlipidemia) 10/22/2016 Assessment & Plan (03/12/2024 1:13 PM EST): Patient will follow low-cholesterol diet. Continue carvedilol pravastatin. GERD (gastroesophageal reflux disease) 7 Diabetes mellitus with diabetic cataract 017 Assessment & Plan (03/12/2024 1:13 PM EST): Diabetic diet discussed. She is being monitored by endocrinology as well. Will check A1c and urine microalbumin levels. Continue current regimen of dulaglutide, metformin. She states she followed up with ophthalmology for her diabetic eye exam. Orders: Hemoglobin A1c; Future Microalbumin creatinine urine ratio; Future Cough variant asthma 10/22/2016 Overview (05/29/2023): Pulmonology (12/31/16): Encouraged to use Combivent twice a day for the next several days until symptoms improve, she declined DuoNeb updraft, she is using her BiPAP machine at night with more than 4 hours of benefit, continue BiPAP. Continue Combivent and Qvar with spacer. History of endometrial cancer 08/16/2010 Overview (05/29/2023): Subtotal johanen bso 1999 high grade endometrial ca + margins but neg biopsy by Dr Stock 2002 and neg paps after Encounters Date Type Department Care Team Description 04/06/2024 9:48 AM EST Anesthesia Event [facility] Endoscopy [address] [place] [id number] Felipe Portillo MD 04/06/2024 9:08 AM EST - 04/06/2024 11:59 PM EST Hospital Encounter [facility] Endoscopy [address] [place] [phone] Evangelista Travis DO Elliott, Barbara J, CRNA Hx of colonic polyps; Gastroesophageal reflux disease without esophagitis Discharge Disposition: Home or Self Care 03/12/2024 11:00 AM EST Office Visit Internal Medicine - [facility] [address] [place] [phone] Luis F Rodriguez MD Back muscle spasm (Primary Dx); Type 2 diabetes mellitus with diabetic cataract, without long-term current use of insulin ([facility]); Bilateral carotid artery stenosis; Hypertension, unspecified type; Hyperlipidemia, unspecified hyperlipidemia type; Hypothyroidism, unspecified type; Encounter for screening mammogram for malignant neoplasm of breast 02/03/2024 2:30 PM EST Office Visit Orthopedic Surgery [facility] [address] [place] [phone] Amilcar Romero, EVA Controlled type 2 diabetes with neuropathy ([facility]) (Primary Dx); Arthritis of both feet; Difficulty walking; Dermatophytosis, nail from Last 3 Months Immunizations Name Administration Dates Next Due Influenza trivalent, 0.5mL ( Fluzone High-dose) 65yo and older 01/28/2023,12/07/2020,12/23/2017,12/04,01/16/2013 Influenza trivalent, with pr eservative (Fluzone; Afluria) 6mo and older 02/16/2020,01/08/2010 Influenza, Unspecified 01/28/2022 Moderna SARS-CoV-2 COVID-19, mRNA, LNP-S, preservative free 06/29/2020,06/02/2020 Pneumococcal conjugate 13 va lent (Prevnar 13, PCV13) 2mo and older 12/04/2016 Pneumococcal polysaccharide 23 valent (Pneumovax 23) 2yo and older 04/27/2018 Tdap Tetanus diptheria acell ular pertussis (Boostrix; Adacel) 7yo and older 02/03/2017 Zoster Live 01/16/2013 Zoster recombinant (Shingrix ) 19yo and older 12/08/2018,05/21/2018 Surgical History Surgery Date Site/Laterality Comments SECTION PROCEDURE: IA DELIVERY ONLY; COMMENT: x 1 TONSILLECTOMY ADENOIDECTOMY, BILATERAL MYRINGOTOMY AND TUBES PROCEDURE: IA TONSILLECTOMY & ADENOIDECTOMY <AGE 12 HYSTERECTOMY PROCEDURE: IA VAGINAL HYSTERECTOMY UTERUS 250 GM/<; COMMENT: bso,endometrial CA CHOLECYSTECTOMY PROCEDURE: IA LAPAROSCOPY SURG CHOLECYSTECTOMY CATARACT EXTRACTION 05/17/2014 Left PROCEDURE: HISTORICAL CATARACT REMOVAL; COMMENT: Dr Blake Hahn CATARACT EXTRACTION 05/05/2014 Right PROCEDURE: HISTORICAL CATARACT REMOVAL BACK SURGERY 06/2012 PROCEDURE: HISTORICAL BACK SURGERY; COMMENT: Posterior decompression and fusion L4-L5 w/ pedicle screw and posterolateral grafting. COLONOSCOPY 08/14/2018 PROCEDURE: HISTORICAL COLONOSCOPY; COMMENT: 8 mm polyp in ascending colon (sessile), internal hemorrhoids OTHER SURGICAL HISTORY 10/03/2021 PROCEDURE: IA ARTHRODESIS POSTERIOR INTERBODY 1 NTRSPC LUMBAR; COMMENT: L3-4 Dr. Meghann PIEMNTEL Medical History Medical History Date Comments HTN (hypertension) 10/22/2016 DX:HTN (hyper tension) Type 2 diabetes mellitus wit h eye manifestations (CMS/HCC) 10/22/2016 DX:Type 2 diabetes mellitus with eye manifestations (HCC) HLD (hyperlipidemia) 10/22/2016 DX:HLD (hyp erlipidemia) GERD (gastroesophageal reflu x disease) 10/22/2016 DX:GERD (gastroesophageal re flux disease) Asthma 10/22/2016 DX:Asthma Hypothyroidism 10/22/2016 DX:Hypothyroidis m Cataract 01/10/2017 DX:Cataract; COM MENT: Surgery 05/17/14 Conjunctival chalasis, bilateral 01/10/2017 DX:Conjunctival chalasis, bilateral History of endometrial cancer 08/16/2010 DX :History of endometrial cancer; COMMENT: Subtotal johanne bso 1999 high grade endometrial ca + margins but neg biopsy by Dr Stock 2002 and neg paps after Type 2 diabetes mellitus wit h diabetic neuropathy, unspecified (CMS/HCC) 10/22/2016 DX:Type 2 diabetes mellitus with diabetic neuropathy, unspecified (HCC) Morbid obesity with BMI of 4 0.0-44.9, adult ([facility]) 12/31/2016 DX:Morbid obesity with BMI o f 40.0-44.9, adult ([facility]) Neuropathy of both feet 06/24/2017 DX:Neuro chencho of both feet Osteoarthritis of knees, bilateral 06/17/2017 DX:Osteoarthritis of knees, bilateral; COMMENT: chronic knee pain, followed at [facility]. 05/2016 x ray: endstage arthritic changes w/ noted osteophyte formation. (Not a candidate for TKR until wt down to 215 and DM under control w/ H A1C < 8.) s/p Lynn One injection bilat 06/28/2016. Glenohumeral arthritis 07/04/2017 DX:Glenoh umeral arthritis; COMMENT: Shoulders bilat. 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 DX:Positive QuantiFERON-TB Gold test Family History Medical History Relation Name Comments No Known Problems Daughter No Known Problems Father Stomach cancer Maternal Grandmother Stomach cancer Mother No Known Problems Son x2 Breast cancer Neg Hx Relation Name Status Comments Brother x2 Alive Daughter Alive Father Maternal Grandmother Mother Son x2 Alive Social History Tobacco Use Types Packs/Day Years Used Date Smoking Tobacco: Never Smokeless Tobacco: Never Tobacco Cessation:Counseling Given: Not Answered Alcohol Use Standard Drinks/Week Comments No 0 (1 standard drink = 0.6 oz pur e alcohol) Sex and Gender Information Value Date Recorded Sex Assigned at Female 04/05/2024 12:31 PM EST Gender Identity Female 04/05/2024 12:31 PM EST Sexual Orientation Straight 04/05/2024 12 :33 PM EST Job Start Date Occupation Industry Not on file Not on file Not on file Obstetrics History Last Filed Vital Signs Vital Sign Reading [...] Mass Index 43.9 04/06/2024 9:43 AM EST Plan of Treatment Upcoming Encounters Date Type Department Care Team (Late st Contact Info) Description 04/16/2024 12:45 PM EST Appointment Ultrasound - [address] [phone] 06/09/2024 10:00 AM EDT Office Visit Endocrinology - [address] [phone] Tammy De Santiago PA [address] [place] [phone] 07/29/2024 9:45 AM EDT Office Visit Internal Medicine - [address] [phone] Luis F Rodriguez MD [address] [place] [phone] Health Maintenance Due Date Last Done Comments Social Influencers of Health Screening 03/02/2022 Diabetes: Annual Retina Eye Exam 07/02/2023 07/01/2022 COVID-19 Vaccine ( season) 2023 07/18/2021, 06/29/2020, 06/02/2020 Influenza Vaccine (#1) 2023 , 02/07/2022, 01/28/2022, Additional history exists Diabetes: Blood Sugar Control Test (HGBA1C) 09/10/2024 03/12/2024, 11/10/2023, 11/10/2023, Additional history exists Depression Screening 11/09/2024 11/10/2023, 07/18/19 Diabetes: Annual Foot Exam 11/09/2024 11/10/2023, Medicare Annual Wellness Visit 11/09/2024 11/10/2023 Diabetes: Annual GFR (Glomerular Filtration Rate) 02/26/2025 02/27/2024, 11/10/2023, 11/10/2023 Hypertension/CHF/CAD Annual BMP Blood Test 02/26/2025 02/27/2024, 11/10/2023, 11/10/2023 Diabetes: Annual Urine Albumin-Creatinine Ratio (uACR) 03/12/2025 03/12/2024, 02/27/2023 Falls Risk Assessment 04/06/2025 04/06/2024 , 11/10/2023, 07/17/2021 DTaP,Tdap,and Td Vaccines (2 - Td or Tdap) 02/03/2027 02/03/2017 Cholesterol Screening (Lipid Panel) 06/25/2028 06/26/2023, 05/23/2022 Colorectal Cancer Screening: Colonoscopy 04/06/2029 04/06/2024, 08/14/2018 Osteoporosis Screening (Bone Density Screening) 04/11/2033 04/11/2023, 05/01/2018 Hepatitis C Screening Completed 10/22/2016 Pneumococcal Vaccine: 65+ Years Completed 04/27/2018, 12/04/2016, 03/03/2009 Zoster Vaccines Completed 12/08/2018, 04/25, 01/16/2013 RSV Immunization Patients 60+ Years Old Completed 07/08/2023 HIB Vaccines Aged Out No longer eligi ble based on patient's age to complete this topic HPV Vaccines Aged Out No longer eligi ble based on patient's age to complete this topic Hepatitis A Vaccines Aged Out No long er eligible based on patient's age to complete this topic Hepatitis B Vaccines Aged Out No long er eligible based on patient's age to complete this topic IPV Vaccines Aged Out No longer eligi ble based on patient's age to complete this topic MMR Vaccines Aged Out No longer eligi ble based on patient's age to complete this topic Meningococcal ACWY Vaccine Aged Out N o longer eligible based on patient's age to complete this topic RSV Immunization Patients Under 20 months Aged Out No longer eligible based on patient's age to complete this topic Varicella Vaccines Aged Out No longer eligible based on patient's age to complete this topic Procedures Procedure Name Priority Date/Time Associated Diagnosis Comments EGD Routine 04/06/2024 10:40 AM EST Gastroesophageal reflux disease without esophagitis COLONOSCOPY Routine 04/06/2024 10:40 AM EST Hx of colonic polyps TISSUE EXAM Routine 04/06/2024 10:19 AM EST Hx of colonic polyps Gastroesophageal reflux disease without esophagitis HEMOGLOBIN A1C Routine 03/12/2024 12:15 PM EST Type 2 diabetes mellitus with diabetic cataract, without long-term current use of insulin (CMS/HCC) MICROALBUMIN CREATININE URINE RATIO Routine 03/12/2024 12:15 PM EST Type 2 diabetes mellitus with diabetic cataract, without long-term current use of insulin (CMS/HCC) DEPRESSION SCREENING Routine 11/10/2023 FALLS RISK ASSESSMENT Routine 11/10/2023 ANNUAL BMP BLOOD TEST Routine 11/10/2023 DIABETES FOOT EXAM Routine 11/10/2023 LIPID PANEL Routine 06/26/2023 DXA BONE DENSITY STUDY 1+ SITS AXIAL SKEL Routine 04/11/2023 2:03 PM EST Encounter for screening for osteoporosis HEPATITIS C SCREENING Routine 10/22/2016 from Last 3 Months or Most Recently Relevant to Health Maintenance Results * COLONOSCOPY Anesthesia - MAC; [facility] ENDOSCOPY (04/06/2024 10:40 AM EST) Anatomical Region [...] pathology results. Narrative 04/06/2024 10:37 AM EST [facility] GI Patient Name: Viviana Menjivar Procedure Date: 04/06/2024 9:15 AM Date of : 1945 Age: 78 Gender: Female Note Status: Finalized Attending MD: Evangelista Travis DO, [id number] Procedure Date No Time: 04/06/2024 Procedure: ? [...] physician, the nurse, the ? anesthesiologist, the line prep cook and the fuel testing technician ? in the pre-procedure area in [...] Procedure Code(s): ? --- Professional --- ? 69300, Colonoscopy, flexible; with biopsy, single or ? multiple Diagnosis Code(s): ? --- Professional --- ? Z86.010, Personal history of colonic polyps ? K64.9, Unspecified hemorrhoids ? K63.89, Other specified diseases of intestine CPT copyright 2020 [employer]. All rights reserved. The codes documented in this report are preliminary and upon broadcast journalist review may be revised to meet current compliance requirements. EVANGELISTA Travis DO 04/06/2024 10:37:50 AM This report has been signed electronically.Evangelista Travis DO Number of Addenda: 0 Note Initiated On: 04/06/2024 9:15 AM Scope Withdrawal Time: 0 hours 7 minutes 1 second Scope In: 10:25:08 AM Scope Out: 10:36:03 AM ? Endoscopy Department at [facility] - [address] [place] [address], ? [place] [address] Procedure Note Evangelista Travis DO - 04/06/2024 [facility] GI Patient Name: Viviana Menjivar Procedure Date: 04/06/2024 9:15 AM Date of : 1945 Age: 78 Gender: Female Note Status: Finalized Attending MD: Evangelista Travis DO, [id number] Procedure Date No Time: 04/06/2024 Procedure: Colonoscopy [...] the physician, the nurse, the anesthesiologist, the line prep cook and thetechnician in the pre-procedure area in [...] was minimal. Procedure Code(s): --- Professional --- 42566, Colonoscopy, flexible; with biopsy, singleor multiple Diagnosis Code(s): --- Professional --- Z86.010, Personal history of colonic polyps K64.9, Unspecified hemorrhoids K63.89, Other specified diseases of intestine CPT copyright 2020 [employer]. All rights reserved. The codes documented in this report are preliminary and upon broadcast journalist reviewmay be revised to meet current compliance requirements. EVANGELISTA Travis DO 04/06/2024 10:37:50 AM This report has been signed electronically.Evangelista Travis DO Number of Addenda: 0 Note Initiated On: 04/06/2024 9:15 AM Scope Withdrawal Time: 0 hours 7 minutes 1 second Scope In: 10:25:08 AM Scope Out: 10:36:03 AM Endoscopy Department at [facility] - [address] [place] [phone] IMPRESSION: - Preparation of the colon was fair. - Hemorrhoids found on perianal exam. - Congested mucosa in the sigmoid colon.Biopsied. Recommendation: - Discharge patient to home. - Resume previous diet. - Continue present medications. - Await pathology results. Evangelista Travis DO GI~PROCEDURE ORDERAB LES * EGD Anesthesia - MAC; [facility] ENDOSCOPY (04/06/2024 10:40 AM EST) Anatomical Region Laterality Modality Endoscopy 04/06/2024 9:43 AM EST Impressions 04/06/2024 10:23 AM EST - Z-line irregular, 37 cm from the incisors. Biopsied. ? - Gastric bypass. ? - Normal examined jejunum. Recommendation: ?- Discharge patient to home. ? - Resume previous diet. ? - Continue present medications. ? - Await pathology results. Narrative 04/06/2024 10:23 AM EST [facility] GI Patient Name: Viviana Menjivar Procedure Date: 04/06/2024 9:43 AM Date of : 1945 Age: 78 Gender: Female Note Status: Finalized Attending MD: Evangelista Travis DO, [id number] Procedure Date No Time: 04/06/2024 Procedure: ? [...] physician, the nurse, the ? anesthesiologist, the line prep cook and the fuel testing technician ? in the pre-procedure area in [...] physician, the nurse, the ? anesthesiologist, the line prep cook and the fuel testing technician ? in the pre-procedure area in [...] Procedure Code(s): ? --- Professional --- ? 25689, Esophagogastroduodenoscopy, flexible, ? transoral; with biopsy, single or multiple Diagnosis Code(s): ? --- Professional --- ? K22.89, Other specified disease of esophagus ? Z98.84, Bariatric surgery status ? R12, Heartburn CPT copyright 2020 [employer]. All rights reserved. The codes documented in this report are preliminary and upon broadcast journalist review may be revised to meet current compliance requirements. EVANGELISTA Travis DO 04/06/2024 10:22:56 AM This report has been signed electronically.Evangelista Travis DO Number of Addenda: 0 Note Initiated On: 04/06/2024 9:43 AM Scope In: Scope Out: ? Endoscopy Department at [facility] - [address] [place] [address], ? [place] [address] Procedure Note Evangelista Travis DO - 04/06/2024 [facility] GI Patient Name: Viviana Menjivar Procedure Date: 04/06/2024 9:43 AM Date of : 1945 Age: 78 Gender: Female Note Status: Finalized Attending MD: Evangelista Travis DO, [id number] Procedure Date No Time: 04/06/2024 Procedure: Upper [...] the physician, the nurse, the anesthesiologist, the line prep cook and thetechnician in the pre-procedure area in [...] the physician, the nurse, the anesthesiologist, the line prep cook and thetechnician in the pre-procedure area in [...] was normal. Procedure Code(s): --- Professional --- 80762, Esophagogastroduodenoscopy, flexible, transoral; with biopsy, single or multiple Diagnosis Code(s): --- Professional --- K22.89, Other specified disease of esophagus Z98.84, Bariatric surgery status R12, Heartburn CPT copyright 2020 [employer]. All rights reserved. The codes documented in this report are preliminary and upon broadcast journalist reviewmay be revised to meet current compliance requirements. EVANGELISTA Travis DO 04/06/2024 10:22:56 AM This report has been signed electronically.Evangelista Travis DO Number of Addenda: 0 Note Initiated On: 04/06/2024 9:43 AM Scope In: Scope Out: Endoscopy Department at [facility] - [address] [place] [phone] IMPRESSION: - Z-line irregular, 37 cm from [...] or chronic colitis identified. 04/07/2024 1:13 PM EST [facility] Gross Description A. Esophagus, ge junction [...] multiple levels. dvb/DG 04/07/2024 1:13 PM EST [facility] Disclaimer Unless otherwise specified, all tissue is 10% NB formalin fixed and paraffin embedded. 04/07/2024 1:13 PM EST [facility] Tissue Esophageal structure / Unknown 04/06/2024 10:19 AM EST 04/06/2024 11:28 AM EST Tissue specimen (specimen) Sigmoid colon structure / Unknown 04/06/2024 10:34 AM EST 04/06/2024 11:28 AM EST Evangelista Travis DO LAB PATHOLOGY ORDERA BLES [facility] [address] [place] [address], * Microalbumin creatinine urine ratio (03/12/2024 12:15 PM EST) [facility] Creatinine, Urine 127.0 mg/dL LAB CHEMISTRY METHOD 03/12/2024 3:54 PM EST [facility] Microalb, Ur 8.6 0.0 - 29.0 mg/L LAB CHEMISTRY METHOD 03/12/2024 3:54 PM EST [facility] Microalb/Creat Ratio 7 <30 mg/g creat LAB CHEMISTRY METHOD 03/12/2024 3:54 PM EST [facility] Urine Urine specimen obtained by clean catch procedure / Unknown Non-blood Collection / Unknown 03/12/2024 12:15 PM EST 03/12/2024 12:15 PM EST Luis F Rodriguez MD LAB URINE ORDERAB LES Performing Organization Address City/[facility] [address]/ZIP Co de Phone Number [facility] [address] [place] [address], [place] [phone] * (ABNORMAL) Hemoglobin A1c (03/12/2024 12:15 PM EST) [facility] Hemoglobin A1C 6.5(H) <6.5 % LAB CHEMISTRY METHOD 03/12/2024 9:06 PM EST [facility] Mean Bld Glu Estim. 140 mg/dL LAB CHEMISTRY METHOD 03/12/2024 9:06 PM EST [facility] Blood Venous blood specimen / Unknown Venipuncture / Unknown 03/12/2024 12:15 PM EST 03/12/2024 12:15 PM EST Luis F Rodriguez MD LAB BLOOD ORDERAB LES Performing Organization Address City/[facility] [address]/ZIP Co de Phone Number [facility] [address] [place] [address], [place] [phone] * Annual BMP Blood Test (11/10/2023) [facility] Annual BMP Blood Test abstracted Historical Provider [facility] * Falls Risk Assessment (11/10/2023) [facility] Falls Risk Assessment abstracted Historical Provider [facility] * Depression Screening (11/10/2023) [facility] Depression Screening abstracted [facility] Provider [facility] * Diabetes Foot Exam (11/10/2023) [facility] Diabetes: Annual Foot Exam abstracted Historical Provider [facility] * Lipid panel (06/26/2023) [facility] LDL/HDL Ratio 2 0 - 4 Triglycerides 111 0 - 150 mg/dL Cholesterol 142 0 - 200 mg/dL HDL 69 40 mg/dL LDL Cholesterol 51 0 - 100 mg/dL Blood Venous blood specimen / Unknown Historical Provider [place] LAB BLOOD ORDERAB LES * DXA BONE DENSITY STUDY 1+ SITS AXIAL SKEL (04/11/2023 2:03 PM EST) Anatomical Region Laterality Modality Bone Densitometr y 09/25/2022 10:1 9 AM EDT Narrative 04/11/2023 6:01 PM EST BONE DENSITY ? Lumbar Spine T-score is +1.3 ?? (SD relative to 20-29 y/o adult) Z-score is +3.6 ??(SD relative to age matched peers) This is normal by criteria defined by the WHO. Left Hip T-score is +0.2 Z-score is +2.0 This is normal by criteria defined by the WHO. Impression: Based on the World Health Organization criteria, Viviana Menjivar should be classified as having normal bone density. [facility] Department of Internal Medicine recommends using National Osteoporosis Foundation (NOF) guidelines in treatment decisions related to osteoporosis. NOF guidelines suggest considering treatment for postmenopausal women and men aged 50 or older presenting with the following: History of hip or vertebral fracture. T-score less than or equal to -2.5 (DXA) at the femoral neck, total hip, or spine, after appropriate evaluation to exclude secondary causes. Low bone mass (T-score between -1.0 and -2.5 at the femoral neck or spine) AND a 10-year probability of a hip fracture greater than or equal to 3% OR a 10-year probability of a major osteoporosis-related fracture greater than or equal to 20% based on the [place]-adapted WHO algorithm Please note that all treatment decisions require clinical judgment and consideration of individual patient factors, including patient preferences, co-morbidities, previous drug use, risk factors not captured in the FRAX model (e.g., frailty, falls, vitamin D deficiency, increased bone turnover, interval significant decline in bone density) and possible under- or over-estimation of fracture risk by FRAX. Procedure Note Radha Pearl MD - 11/10/2023 BONE DENSITY Lumbar Spine T-score is +1.3 (SD relative to 20-29 y/o adult) Z-score is +3.6 (SD relative to age matched peers) This is normal by criteria defined by the WHO. Left Hip T-score is +0.2 Z-score is +2.0 This is normal by criteria defined by the WHO. Impression: Based on the World Health Organization criteria, Viviana Menjivar should beclassified as having normal bone density. [facility] Department of Internal Medicine recommendsusing National Osteoporosis Foundation (NOF) guidelines in treatmentdecisions related to osteoporosis. NOF guidelines suggest consideringtreatment for postmenopausal women and men aged 50 or older presentingwith the following: History of hip or vertebral fracture. T-score less than or equal to -2.5 (DXA) at the femoral neck, total hip,or spine, after appropriate evaluation to exclude secondary causes. Low bone mass (T-score between -1.0 and -2.5 at the femoral neck or spine)AND a 10-year probability of a hip fracture greater than or equal to 3% ORa 10-year probability of a major osteoporosis-related fracture greaterthan or equal to 20% based on the [place]-adapted WHO algorithm Please note that all treatment decisions require clinical judgment andconsideration of individual patient factors, including patientpreferences, co-morbidities, previous drug use, risk factors not capturedin the FRAX model (e.g., frailty, falls, vitamin D deficiency, increasedbone turnover, interval significant decline in bone density) and possibleunder- or over-estimation of fracture risk by FRAX. Luis F Rodriguez MD IMG DXA PROCEDURE S * Hepatitis C Screening (10/22/2016) 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
--- OUTSIDE RECORDS SUMMARY | 2024-04-13 11:28 | XMS_ITS | Data Portability ---
Author Organization [employer] Address [address] [place] [phone] Care Team Providers Care Skin Fitter Name Role Phone [facility] Referring Provider Assessment No assessment recorded. Plan of Treatment Reminders Order Date Submit Date Provider Last Modified By Organization Details Last Modified Time Details Appointments None recorded. Lab None recorded. Referral None recorded. Procedures None recorded. Surgeries None recorded. Imaging None recorded. Medication Orders prednisone 20 mg tablet 2022 023 [facility], [address] [place], [address], 3 20:37:27 Patient TargetsNo targets recorded. Patient InstructionsNo instructions recorded. Reason for Referral None Reported. Medical Equipment None Reported. Medications Name Sig Start Date Stop Date Status Note LastModified by Organization Details LastModified Time pravastatin 40 mg tablet TAKE 1 TABLET BY MOUTH ONCE DAILY active Not Available Not Available No t Available prednisone 20 mg tablet TAKE 2 TABLETS BY MOUTH ONCE DAILY FOR 4 DAYS active Not Available Not Available No t Available doxycycline monohydrate 100 mg tablet TAKE 1 TABLET BY MOUTH TWICE DAILY FOR 7 DAYS active Not Available Not Available No t Available levothyroxin e 75 mcg tablet TAKE 1 TABLET BY MOUTH ONCE DAILY active Not Available Not Available No t Available rifampin 300 mg capsule active Not Available Not Available N ot Available famotidine 20 mg tablet TAKE 1 TABLET BY MOUTH TWICE DAILY active Not Available Not Available No t Available amlodipine 10 mg tablet TAKE 1 TABLET BY MOUTH ONCE DAILY active Not Available Not Available No t Available levothyroxin e 50 mcg tablet TAKE 1 TABLET BY MOUTH ONCE DAILY; EXCEPT FOR SUNDAYS, TAKE AN EXTRA HALF TABLET ON SUNDAYS. active Not Available Not Available No t Available cephalexin 500 mg capsule TAKE 1 CAPSULE BY MOUTH THREE TIMES DAILY active Not Available Not Available Not Available montelukast 10 mg tablet TAKE 1 TABLET BY MOUTH ONCE DAILY active Not Available Not Available No t Available furosemide 20 mg tablet TAKE 1 TABLET BY MOUTH ONCE DAILY NEEDED FOR LEG SWELLING active Not Available Not Available No t Available loteprednol etabonate 0.5 % eye drops,suspen alyssa active Not Available Not Available Not Available fluticasone propionate 50 mcg/actuatio n nasal spray,suspen alyssa USE 2 SPRAY(S) IN EACH NOSTRIL ONCE DAILY active Not Available Not Available N ot Available metformin ER 500 mg tablet,exten ded release 24 hr TAKE 1 TABLET BY MOUTH ONCE DAILY WITH BREAKFAST active Not Available Not Available No t Available loratadine 10 mg tablet TAKE 1 TABLET BY MOUTH ONCE DAILY active Not Available Not Available No t Available losartan 100 mg-hydrochlo rothiazide 12.5 mg tablet TAKE 1 TABLET BY MOUTH ONCE DAILY active Not Available Not Available No t Available Symbicort 160 mcg-4.5 mcg/actuatio n HFA aerosol inhaler INHALE 2 PUFFS BY MOUTH TWICE DAILY active Not Available Not Available No t Available diclofenac 1 % topical gel APPLY 1 GRAM TOPICALLY TWICE DAILY NEEDED FOR JOINT PAIN active Not Available Not Available No t Available Combivent Respimat 20 mcg-100 mcg/actuatio n solution for inhalation INHALE 1 PUFF BY MOUTH 4 TIMES DAILY SPACE EVENLY DURING WAKING HOURS active Not Available Not Available No t Available Trulicity 0.75 mg/0.5 mL subcutaneous pen injector INJECT 1 SYRINGE SUBCUTANEOU SLY ONCE A WEEK active Not Available Not Available No t Available Vitals Date Recorded Oxygen saturation Oxygen saturation in Arterial blood by Pulse oximetry Heart rate Respiratory rate Body temperature Systolic blood pressure Diastolic blood pressure Provider Name and Address Organization Details Last Updated DateTime 3 97 % 97 % 68 /min 20 /min 98.6 [degF] 140 mm[Hg] 70 mm[Hg] Not Available [facility] - production 3 20:32:15 Social History None recorded. Functional Status None recorded. Mental Status None recorded. Family History Nothing Reported. Medical History No medical history recorded. Gynecological HistoryNo gynecological history recorded. Obstetrics History GPAL:G 0 P 0 0 0 0 Past Encounters Encounter ID Performer Location Encounter Start Date Encounter Closed Date Diagnosis/Indication Diagnosis SNOMED-CT Code Diagnosis ICD10 Code Diagnosis Note [id number] Miguel Almonte MD Main - [facility] [address] [place] [phone] 03/20/2023 20:32:11 03/21/2023 13:31:11 Exacerbation of intermittent asthma [id number] J45.21 77 yo woman with asthma presents with cough, wheezing, and dyspnea x 2 weeks. She's gotten over a URI but symptoms have continued. She last used prednisone one year ago with benefit. No clear persistent symptoms of infection. 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 dose by executive creative director, rest to pharmacy Health Concerns Section Related Observation LastModified by Organization Detai ls LastModified Time None Recorded Concern Status LastModified by Organization Details LastModified Time None Recorded Advance Directives Directive None Recorded Payers Encounter Date Sequence Insurance Name Policy Number Policy Blackburn Covered Member ID Blackburn Member ID Guarantor Name 03/20/2023 1 [facility] - DOS ON OR AFTER 2022 - DUAL ELIGIBLE - GROUP HOME OPTIONS AND ONE CARE (MEDICARE REPLACEMENT/ADV ANTAGE - HMO) Viviana Tiara [id number] Viviana Tiara Notes Date Note Type Note Provider Name and Address Organization Details Recorded Time 03/20/2023 text/html [facility] Nurse Triage Notes (Robb Yoder): Reason For Request: Pt had asthma flare up going on 2 weeks in which she mentions that the symptoms she has gone through were intense but has gotten better; there has been underlying weakness , dry cough, chills, and loss of appetite that has persisted since and would like to get evaluated. Chief Complaints: Asthma, Weakness/Lethargy, Syncope/Dizziness/L ightheadedness, Fever/Chills, Cough PMH: COPD/Asthma Allergies: Unknown Comments: Pt had asthma flare up going on 2 weeks and was seen by her PCP - Reports she is still feeling Weak - dry cough with chills - Decreased PO intake - Report feeling unwell - Wellness check requested - Ivonne CRUZ ................... ................... ................... ................... ................... ................... ................... ........ Toll Bridge Attendant Note From Lucretia Lau: Community Toll Bridge Attendant Gilbert Lau [employer] 1 dispatched to a [facility] for a 77 yof C/O a cough X2 weeks. Upon arrival, the pt was ambulatory w/ slight tachypnea and reported SOB on exertion. She was awake and alert, in no apparent distress. She reported that 2 weeks prior, she was having fevers, lots of coughing, increased sputum, weakness, and wheezing. She stated she had been using aleve, her maintenance inhaler, her albuterol MDI, and robitussin. She reported that all of her symptoms had improved, but she still had a lingering productive cough and SOB on exertion. She denied HAYNES, dizziness, sore throat, CP, SOB at rest, abd pain, N/V/D, or urinary S/S. Lung sounds completely clear, sounds audible in bases bilaterally. 1 pitting edema. Pt reported normal blood sugars. [facility] consulted; pt was given 40 mg prednisone PO and a rx as well. She was instructed to continue on w/ her symptomatic tx, and monitor her S/S. She was instructed to inform her Heavy Equipment Sales Manager of [facility] tx, and inquire if she needed further care (abx or chest x ray). Red flags discussed at length. ................... ................... ................... ................... ................... ................... ................... ........ Disposition: Fulfilled Miguel Almonte MD [address] [facility],[address], [place], [phone], [address] [facility] [employer] 03/20/2023 20:37:32 OBGyn Episode No OBEpisode recorded.
== END 2024-04-13 10:58 | disposition home or self-care (01) ==
PROVIDERS: PCP Internal Medicine; Visit Provider Hospitalist
DX: J45.40 Moderate persistent asthma, uncomplicated (principal); R06.01 Orthopnea; G47.33 Obstructive sleep apnea (adult) (pediatric)
CPT/HCPCS: 99214

== ENCOUNTER → 2024-04-13 10:14 | Outpatient (BNVA) | payer OTHER, SELFPAY | PROVIDERS: PCP Internal Medicine; Visit Provider Hospitalist | DX: J45.40 Moderate persistent asthma, uncomplicated (principal); G47.33 Obstructive sleep apnea (adult) (pediatric); R06.01 Orthopnea; Z99.89 Dependence on other enabling machines and devices; Z79.899 Other long term (current) drug therapy | CPT/HCPCS: 99212 ==

== ENCOUNTER 2024-10-11 10:05 | Outpatient (AMB) | payer OTHER, SELFPAY ==
[2024-10-11 10:13] VITALS: BP 158/66; PULSE 67; O2SAT 100; BMI 46.0
--- NOTE | 2024-10-11 10:13 | A.OFFVIS_ITS ---
Vital Signs 10/11/24 10:13 Height 5 ft 2 in Weight 251 lb 5.231 oz BMI 46.0 BP 158/66 H Blood Pressure Location Lt brachial Position Sitting Pulse 67 Pulse Source Pulse Oximeter Pulse Oximetry (%) 100 Oxygen Delivery Method Room Air Intake Visit Reasons: Asthma Allergies Opiates Allergy (Severe, Uncoded 04/13/24 10:29) Rash/Hives HPI Comments Details: The patient is a 78-year-old woman with known asthma in addition to obstructive sleep apnea. Her asthma has actually been very stable. She has continued to use her inhalers but has not really had to use her rescue inhaler. She continues to use her allergy medicine. In regards to her VANESSA, she does use her BiPAP every night. The BiPAP therapy has been affecting beneficial. She does use a BiPAP for more than 4 hours. At this point the patient does have a comfortable mask which is a fullface mask and she gets supplies from her [employer], [employer]. Overall she has not had any problems. She did recently start Medicare so therefore a new prescription needs to be sent and I'll make sure they do get that. The plan is for her to continue the BiPAP at this time. We did download her PAP. Her pressures are 14/11. She averages 9 hours a night. Her AHI is normal at 2.1 for the last 30 days. No changes are required at this time. 08/05/2022 the patient is here for a pulmonary follow-up visit. The patient is doing well from a BiPAP standpoint. Her BiPAP therapy has been affecting beneficial. She does use it for more than 4 hours a night. She is tolerating her mask well. Her AHI is down to 1.5. Her asthma seems to be little bit more active now. She has been using the Symbicort and also the Combivent. Typically the allergy season so usually around this time makes it hard for her to breathe. She tries to stay indoors to minimize the exposure. But, at this point she is doing well on the current therapy in does not need any additional therapies. In addition to this she was referred to a day program for the elderly. As far that program she did undergo a tuberculosis screening test. Indeed that was positive. She does state that she does have a history of exposure to tuberculosis and she has always tested positive when she is tested with PPD. She has never been diagnosed with active tuberculosis. Explained to her that nina laureano has latent tuberculosis. There is a 5-10% chance of reactivation through her on her life. The patient was referred to the [facility] to start prophylactic therapy. She is concerned. I did reassure her. At this point the patient follow-up in the fall if any issues arise she is to call the office earlier assessment. 03/03/2023 the patient is here for a pulmonary follow-up visit. The patient is doing very well. She continues use the BiPAP every night. The BiPAP therapy has been affecting beneficial. Will go ahead and request additional supplies for her. She does use it for more than 4 hours a night. In addition to that her respiratory status is been well controlled on the current regimen. She continues use inhalers as prescribed. She also has been on her tuberculosis prophylactic treatment for total of 4 months. She has already completed 3 and she is tolerating it well. The patient also has been working on weight loss. Overall she is reassured. She is having an easier time with ambulation. 07/15/2023 the patient is here for pulmonary follow-up visit. Overall she is doing well. The BiPAP therapy has been affecting beneficial. She has missing a piece from the machine will try to help her with it. The patient does use the machine every night for more than 4 hours. Her adherence is 100%. Her AHI is down to 1. She does get with her mask. No significant leakage. She is complaining of worsening cough. She goes to coughing burst. She does use the rescue inhaler with good improvement of the cough. She does use Symbicort in the morning and also in the evening. Will go ahead and add Spiriva to her regimen. Also some cough drops such as benzonates is will be helpful as well. We did look at her last chest x-ray was from [facility] back in August 2022 demonstrating no acute disease. She was treated prophylactically for latent tuberculosis. She already completed the treatment. She tolerated it fairly well. The patient will try the Spiriva and also the benzo needs. If her symptoms are not better she will call the office. Otherwise will follow-up in 6 months. 04/13/2024 the patient is here for pulmonary follow-up visit. Overall she is doing well from a respiratory status. Asthma seems to be in good control. She recently moved to a different location seems to be a little healthier for her. She is also using her BiPAP at nighttime BiPAP has been affecting beneficial. Sometimes she leaks out he does have a mask fitting. She does use a fullface mask. I did provide her a trial of a F 40 medium mask that seemed to fit well. Hopefully with this mask she can put a little tighter without irritating her nasal bridge. She can try and see which 1 works best for her. Will keep the BiPAP with the current settings 15/20 since her AHI still 1.8 even with the mask leakage. Most likely when she gets a better fitting mask the AHI while improves further. No changes right now with respiratory medications. Will follow-up in 6 months. If she has any issues prior to that she will call for an earlier assessment. 10/11/2024 the patient is here for pulmonary follow-up visit. Overall she is doing well from the respiratory status. She continues on the Combivent and also using the Symbicort inhaler. Seems to be a good combination for her. As far as the BiPAP she sometimes struggles because she leaks air through her mouth. She does use a foam F20 mask. Seems to be the more comfortable for her. Although she sleeps on her side because it has significant discomfort from her hip. She has tosses and turns a good amount. She is willing to try little trazodone to see if this provides some relief. She can start with half a tablet and then increase it to a full tablet if warranted. Hopefully this can provide her some relief. In the meantime she is doing well will plan to follow-up with the spring. If any issues arise prior to that she will call for an earlier assessment. [facility] Medical History (Updated 08/05/22 @ 22:43 by King De Santiago MD) Latent tuberculosis Limb swelling Abnormal EKG VANESSA treated with BiPAP Asthma Dyspnea Chest pain Surgical History History of lumbar surgery History of uterine cancer Family History Father No problems noted. Mother No problems noted. Social History Patient Tobacco Use Status: Never used Tobacco Review of Systems Const Reports difficulty sleeping, Denies fever(s), Denies night sweats and Reports weight loss Eyes Denies change in vision ENT Reports change in voice, Denies hoarseness and Denies sore throat Card Denies chest pain Resp Denies chest congestion, Reports cough, Denies hemoptysis and Denies wheezing GI Reports no additional complaints Musc Reports abnormal gait, Reports back pain, Reports myalgias and Reports limited range of motion Skin/Breast Denies rash Neuro Reports abnormal gait Endo Reports no additional complaints Jimi/Lymph Denies easy bleeding and Denies easy bruising Aller/Immun Denies wheezing Physical Exam Vital Signs: Last Vital Signs Pulse 67 10/11/24 10:13 BP 158/66 H 10/11/24 10:13 Pulse Ox 100 10/11/24 10:13 Oxygen Delivery Method Room Air 10/11/24 10:13 BMI result Body Mass Index 46.0 Const General: alert Neck Neck: Yes normal visual inspection, Yes full ROM and Yes no lymphadenopathy Chest Chest palpation & inspection: normal inspection of the chest Resp Effort & Inspection: normal respiratory effort Auscultation: no rhonchi, no wheezes and diminished lung sounds Cardio Rate: regular rate Rhythm: regular rhythm Heart sounds: S1 normal heart sound present and S2 normal heart sound present GI Palpation (GI): Soft to palpation and nontender Auscultation: normal bowel sounds Skin General skin exam: rashes and/or lesions noted Extrem General: Yes edema Assessment & Plan Assessment & Plan (1) Asthma: Code(s): J45.909 - Unspecified asthma, uncomplicated Category: Medical Qualifiers: Asthma complication type: uncomplicated Asthma persistence: persistent Asthma severity: moderate Qualified Code(s): J45.40 - Moderate persistent asthma, uncomplicated (2) Dyspnea: Code(s): R06.00 - Dyspnea, unspecified Category: Medical Qualifiers: Dyspnea type: orthopnea Qualified Code(s): R06.01 - Orthopnea (3) VANESSA treated with BiPAP: Code(s): G47.33 - Obstructive sleep apnea (adult) (pediatric) Category: Medical Plan continue BIPAP 07/03, trial F40 mask, Reliable Respiratory Spiriva respimet daily benzonates as needed for cough continue Symbicort 2puff BID Continue Singulair continue Claritin continue Fluticasone start 1/2 tab trazadone PM, increase to full tablet if needed F/U 6-6 months Medications: New trazodone 50 mg PO BEDTIME PRN 30 tabs 5RF sleep 30 days Coding Level of Care Code Est Pt Level 4 (20831) Complex EM visit Add On G2211 Diagnoses Moderate persistent asthma without complication J45.40 Asthma complication type: uncomplicated Asthma persistence: persistent Asthma severity: moderate Orthopnea R06.01 Dyspnea type: orthopnea VANESSA treated with BiPAP G47.33 Time Spent (min) 17
--- OUTSIDE RECORDS SUMMARY | 2024-10-11 10:56 | XMS_ITS | Data Portability ---
Author Organization [facility], [facility] Address [address] [place] [id number] Care Team Providers Care Loan Operations Specialist Name Role Phone [facility] Referring Provider [phone] Assessment No assessment recorded. Plan of Treatment Reminders Order Date Submit Date Provider Last Modified By Organization Details Last Modified Time Details Appointments None recorded. Lab None recorded. Referral None recorded. Procedures None recorded. Surgeries None recorded. Imaging None recorded. Medication Orders prednisone 20 mg tablet 2022 023 [facility] 1967, [address] [place], [address], 3 20:37:27 Patient TargetsNo targets recorded. Patient [...] Heart rate Respiratory rate Body temperature Systolic And Diastolic Provider Name and Address Organization Details Last Updated DateTime 3 97 % 97 % 68 /min 20 /min 98.6 [degF] 140/70 mm[Hg] Not Available [facility] - production 3 20:32:15 Social History None recorded. Functional Status None recorded. Mental Status None recorded. Family History Nothing Reported. Medical History No medical history recorded. Gynecological HistoryNo gynecological history recorded. Obstetrics History GPAL:G 0 P 0 0 0 0 Past Encounters Encounter ID Performer Location Encounter Start Date Encounter Closed Date Diagnosis/Indication Diagnosis SNOMED-CT Code Diagnosis ICD10 Code Diagnosis Note [id number] Miguel Almonte MD [facility] [address] [place] [phone] 03/20/2023 20:32:11 03/21/2023 13:31:11 Exacerbation of intermittent asthma [id number] J45.21 77 yo woman with asthma presents with cough, wheezing, and dyspnea x 2 weeks. She's gotten over a URI but symptoms have continued. She last used prednisone one year ago with benefit. No clear persistent symptoms of infection. 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 dose by railroad inspector, rest to pharmacy Health Concerns Section Related Observation LastModified by Organization Detai ls LastModified Time None Recorded Concern Status LastModified by Organization Details LastModified Time None Recorded Advance Directives Directive None Recorded Payers Insurance Date Sequence Insurance Name Policy Number Policy Blackburn Covered Member ID Blackburn Member ID Guarantor Name 09/27/2023 1 [facility] - DOS ON OR AFTER 2022 - DUAL ELIGIBLE - [employer] OPTIONS AND ONE CARE (MEDICARE REPLACEMENT/ADV ANTAGE - HMO) Viviana Tiara [id number] Viviana Tiara Notes Date Note Type Note [...] ................... ................... ................... ................... ................... ................... ........ 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 Pt reported normal blood sugars. [facility] consulted; pt was given 40 mg prednisone PO and a rx as well. She was instructed to continue on w/ her symptomatic tx, and monitor her S/S. She was instructed to inform her House Detective of [facility] tx, and inquire if she needed further care (abx or chest x ray). Red flags discussed at length. ................... ................... ................... ................... ................... ................... ................... ........ Disposition: Fulfilled Miguel Almonte MD [address] [facility], [place], [address], [employer] - Intern [place] 03/20/2023 20:37:32 OBGyn Episode No OBEpisode recorded.
--- OUTSIDE RECORDS SUMMARY | 2024-10-11 10:57 | XMS_ITS | Patient Health Record ---
Author Organization [facility] Jose J marlene Chencho Address [address] [place] [address] Care Team Providers Care Mine Motor Operator Name Role Phone Talia De La Cruz MD Primary Care Provider Abel Diaz Unavailable [phone] Allergies Allergen (clinical drug ingredient) Drug/Non Drug Allergy documented on EMR Reaction Allergy Type Onset Date Status codeine Codeine Unknown Drug Allergy Active morphine Morphine Unknown Drug Allergy Active Reason For Referral No Information Medications Medication SIG (Take, Route, Frequency, Duration) Notes Start Date End Date Status Pravastatin Sodium 40 MG 1 tablet Orally Once a day Active Prolensa Active Qvar Active Lovastatin 20 MG 1 tablet with a meal Orally Once a day Active metFORMIN HCl 500 MG 1 tablet with meals Orally Once a day 09/21/2014 Active Montelukast Sodium 10 MG 1 tablet in the evening Orally Once a day Active Omeprazole 20 MG 1 tablet Orally Once a day 2014 Active Prednisone Active Afluria TO BE ADMINISTERED B Y PHARMACIST FOR IMMUNIZATION Intramuscular; Duration: 1 Activ e Eucerin . as directed External ly Apply Twice a day to Feet; Duration: 30 days 09/21/2014 Active Combivent Respimat A ctive Extra-Depth Diabetic Shoes with 3 Pair Custom heat-molded multi-density innersoles . for 1 year . Dx: 250.60,735.4,701; Duration: . Active Lisinopril-hydroCHLOROthia zide 10-12.5 MG 1 tablet Orally Once a day 09/21/2014 Active Social History Tobacco use other than smoking: Question Answer Notes Are you an other tobacco user? No Problems No Known Problems Plan Of Treatment Pending Test Test Name Order Date Hemoglobin A1c 09/21/2014 [id number] NAIL, 6 OR MORE 12/15/2014 [id number] NAIL, 6 OR MORE 09/21/2014 [id number] SKIN LESIONS, 2 TO 4 12/16/19 15 [id number] SKIN LESIONS, 2 TO 4 09/22/19 15 Insurance Providers Payer Name Payer Address Payer Phone Subscriber Number Group Number Insured Name Patient Relationship to Insured Coverage Start Date Coverage End Date Medicare [employer] [address] [place] [address] [id number] Viviana Menjivar Self - patient is the insured Medical (General) History Medical History History ICD Code Arthritis asthma Back,Hip,and Knee pain Cancer Diabetic High blood pressure Thyroid disorder Cholesterol Surgical History Surgery Date(Month/Year) back surgery 03/2012 cataract surgery 2014 Hospitalization History Reason Date(Month/Year) Bilateral cataract surgery 2014
== END 2024-10-11 10:50 | disposition home or self-care (01) ==
PROVIDERS: PCP Internal Medicine; Visit Provider Hospitalist
DX: J45.40 Moderate persistent asthma, uncomplicated (principal); R06.01 Orthopnea; G47.33 Obstructive sleep apnea (adult) (pediatric)
CPT/HCPCS: 99214; G2211

== ENCOUNTER → 2024-10-11 10:05 | Outpatient (BNVA) | payer OTHER, SELFPAY | PROVIDERS: PCP Internal Medicine; Visit Provider Hospitalist | DX: J45.40 Moderate persistent asthma, uncomplicated (principal); R06.01 Orthopnea; G47.33 Obstructive sleep apnea (adult) (pediatric) | CPT/HCPCS: 99212 ==